=== PATIENT | female | born 1945 | race Caucasian/White ===

== ENCOUNTER 2016-12-01 11:01 | Outpatient (CLI) | payer MEDICARE, OTHER | END 2016-12-01 11:02 | disposition home or self-care (01) | DX: R10.11 Right upper quadrant pain (principal); N28.9 Disorder of kidney and ureter, unspecified ==

== ENCOUNTER 2016-12-06 09:32 | Day surgery (SDC) | payer MEDICARE, OTHER ==
[2016-12-06] MEDS ORDERED: LACTATED RINGERS 1,000 ML IV ONE ×3 (10:15→12:08)
[2016-12-06] MEDS ORDERED: fentaNYL 100 MCG/2 ML VIAL IVP ONE (11:43)
[2016-12-06] MEDS ORDERED: MIDAZOLAM 2 MG/2 ML VIAL IVP ONE (11:43)
== END 2016-12-06 09:33 | disposition home or self-care (01) ==
PROC: 0DB58ZX Excision of Esophagus, Via Natural or Artificial Opening Endoscopic, Diagnostic (ICD-10-PCS; principal; 2016-12-06 11:00)
DX: K21.9 Gastro-esophageal reflux disease without esophagitis (principal); K22.70 Barrett's esophagus without dysplasia; R07.9 Chest pain, unspecified; K44.9 Diaphragmatic hernia without obstruction or gangrene; F32.9 Major depressive disorder, single episode, unspecified; F41.9 Anxiety disorder, unspecified
CPT/HCPCS: 43239; J7120

== ENCOUNTER 2016-12-22 12:05 | Outpatient (CLI) | payer MEDICARE, OTHER | END 2016-12-22 12:06 | disposition home or self-care (01) | DX: G31.9 Degenerative disease of nervous system, unspecified (principal); M47.812 Spondylosis without myelopathy or radiculopathy, cervical region; R29.818 Other symptoms and signs involving the nervous system; H53.2 Diplopia; M62.81 Muscle weakness (generalized) ==

== ENCOUNTER 2017-04-02 12:42 | Outpatient (CLI) | payer MEDICARE, OTHER | END 2017-04-02 12:43 | disposition home or self-care (01) | LOC: LAB 12:42 | PROVIDERS: ATTEND Psychiatry & Neurology Neurology | DX: R20.2 Paresthesia of skin (principal) ==

== ENCOUNTER 2017-04-03 07:39 | Outpatient (CLI) | payer MEDICARE, OTHER | END 2017-04-03 07:40 | disposition home or self-care (01) | LOC: LAB.F 07:39 | PROVIDERS: ATTEND Psychiatry & Neurology Neurology | DX: R20.2 Paresthesia of skin (principal) | CPT/HCPCS: 36415; 84207 ==

== ENCOUNTER 2017-05-23 11:07 | Outpatient (CLI) | payer MEDICARE, OTHER ==
--- NOTE | 2017-05-23 15:34 | Ultrasound Report ---
RETROPERITONEAL ULTRASOUND: 05/23/2017 HISTORY: History of kidney stones, for followup. TECHNIQUE: Real-time scanning by the commission auditor with saved static images reviewed. COMPARISON: 06/11/2015 CT scan abdomen and pelvis. Abdomen ultrasound 2014. FINDINGS: Real-time scanning by the commission auditor with saved static images reviewed. Right kidney 10.2 x 4.7 x 5.1 cm. Cortex 1.1 cm. Mild fullness of the right renal pelvis, similar to previous. No definite mass, stones, or findings of obstruction. Left kidney 11.1 x 5.2 x 5.7 cm. Cortex 1.1 cm. In the inferior pole, there is a 1.7 x 1.4 x 1.6 cm lesion with internal echoes and possible vascularity, with enlargement since the prior CT scan of 06/21/2015. While this could represent a complex cyst, a solid mass is not excluded and further evaluation by CT using a renal protocol is suggested. There is a small 4 mm in diameter lesion in the mid pole peripherally, which may represent a tiny cyst with possible wall calcification. Bladder: Left ureteral jet is seen; the right is not. Prevoid bladder volume 478 mL, postvoid 19 mL. IMPRESSION: FURTHER EVALUATION OF THE KIDNEYS BY A DEDICATED RENAL CT IS SUGGESTED FOR A SMALL ROUNDED PROJECTION FROM THE INFERIOR POLE OF THE LEFT KIDNEY WHICH DOES NOT MEET THE CRITERIA FOR A SIMPLE CYST AND APPEARS TO HAVE ENLARGED SINCE 2015. MILD PROMINENCE OF THE RIGHT RENAL COLLECTING SYSTEM IS SIMILAR TO 2015. JOB #: [id number] EXT JOB #: [id number] [facility]
== END 2017-05-23 11:08 | disposition home or self-care (01) ==
LOC: DI 11:07
PROVIDERS: ATTEND Urology
DX: N28.89 Other specified disorders of kidney and ureter (principal)
CPT/HCPCS: 76770

== ENCOUNTER 2017-11-13 15:03 | Outpatient (CLI) | payer MEDICARE, OTHER ==
--- NOTE | 2017-11-13 17:37 | Ultrasound Report ---
RENAL ULTRASOUND: 11/13/2017 COMPARISON: Renal ultrasound 05/23/2017. INDICATION: Followup left renal cyst versus mass. TECHNIQUE: Sonographic evaluation of the kidneys and urinary bladder. FINDINGS: The right kidney has a normal appearance, apart from mild pelviectasis measuring 8 mm. No evidence of renal calculus or mass; 10.4 cm. The left kidney measures 11.0 cm. In the inferior pole, there is a solid- appearing mass. It contains internal color Doppler flow. It measures 1.6 x 1.5 x 1.5 cm. Although measurements are similar to the prior exam, it appears more conspicuous as a solid mass on today's examination. There is no bowel wall thickening. There are bilateral ureteral jets. Prevoid bladder volume 236 mL. Post-void residual 0. IMPRESSION: LEFT RENAL LESION IS FAVORED TO REPRESENT A SOLID MASS. IT MAY BE FURTHER EVALUATED WITH CT OR MRI. TD: 11/13/2017 17:36 OSMANI
== END 2017-11-13 15:04 | disposition home or self-care (01) ==
LOC: DI 15:03
PROVIDERS: ATTEND Urology
DX: N28.9 Disorder of kidney and ureter, unspecified (principal)
CPT/HCPCS: 76770

== ENCOUNTER 2018-05-14 13:00 | Outpatient (CLI) | payer MEDICARE, OTHER ==
--- NOTE | 2018-05-15 11:22 | Mammography Report ---
Reason: SCREENING MAMMO Procedure Date: 05/14/2018 Accession Number: [id number] / [id number] Procedure: VICKY - Screening Mammo Dig Bilat CPT Code: FULL RESULT: EXAM: Screening Mammo Dig Bilat DATE: 05/14/2018 1:46 PM CLINICAL HISTORY: Screening mammogram TECHNIQUE: Bilateral CC and MLO views were obtained. COMPARISON: Mammogram 05/01/2016 FINDINGS: The breast parenchyma is heterogeneously dense which may limit the sensitivity of mammography. There are benign-appearing lymph nodes. No suspicious masses, clustered microcalcifications, or regions of architectural distortion are identified. IMPRESSION: Benign findings RECOMMENDATION: Routine annual screening unless otherwise clinically indicated. BIRADS CATEGORY 2: Benign findings STANDARD QUALIFYING STATEMENTS: 1. This examination was reviewed with the aid of Computer-Aided Detection (CAD). 2. A negative or benign imaging report should not delay biopsy if clinically suspicious findings are present. Consider surgical consultation if warrented. More than 5% of cancers are not identified by imaging. 3. Dense breasts may obscure an underlying neoplasm.
== END 2018-05-14 13:01 | disposition home or self-care (01) ==
LOC: DI 13:00
PROVIDERS: ATTEND Physician Assistant
DX: Z12.31 Encounter for screening mammogram for malignant neoplasm of breast (principal)
CPT/HCPCS: 77067

== ENCOUNTER 2018-06-04 20:53 | Outpatient (CLI) | payer MEDICARE, OTHER | END 2018-06-04 20:54 | disposition critical access hospital (66) | LOC: EMS 20:53 | PROVIDERS: ATTEND Surgery | DX: R68.89 Other general symptoms and signs (principal); R51 Headache; R73.09 Other abnormal glucose | CPT/HCPCS: A0425; A0429 ==

== ENCOUNTER 2018-06-04 21:19 | Emergency (ER) | payer MEDICARE, OTHER ==
[2018-06-04 21:49] LABS: BASOPHILS % (AUTO) 0.5 %; EOSINOPHILS # (AUTO) 0.1 10^3/uL (0.0-0.7); EOSINOPHILS % (AUTO) 1.9 %; HGB - HEMOGLOBIN 11.1 g/dL (12.0-16.0); LYMPHOCYTES # (AUTO) 1.6 10^3/uL (1.5-3.5); LYMPHOCYTES % (AUTO) 37.1 %; MEAN CORPUSCULAR HGB CONC 33.5 g/dL (32.0-36.0); MEAN CORPUSCULAR VOLUME 83.4 fL (81.0-99.0); MEAN PLATELET VOLUME 7.5 fL (7.9-10.8); MONOCYTES # (AUTO) 0.4 10^3/uL (0.0-1.0); MONOCYTES % (AUTO) 9.7 %; NEUTROPHILS # (AUTO) 2.2 10^3/uL (1.5-6.6); NEUTROPHILS % (AUTO) 50.8 %; PLT - PLATELET COUNT 176 10^3/uL (130-450); RED BLOOD COUNT 3.96 10^6/uL (4.20-5.40); RED CELL DISTRIBUTION WIDTH 16.1 % (12.0-15.0); WHITE BLOOD COUNT 4.3 x10^3/uL (4.8-10.8)
[2018-06-04 22:03] LABS: ALBUMIN/GLOBULIN RATIO 1.3 (1.0-2.2); BILIRUBIN,TOTAL 0.5 mg/dL (0.2-1.0); CALCIUM 8.8 mg/dL (8.5-10.3); CREATININE 0.9 mg/dL (0.4-1.0); TOTAL PROTEIN 7.1 g/dL (6.7-8.2)
[2018-06-04 22:09] LABS: BILIRUBIN,URINE NEGATIVE (NEGATIVE); GLUCOSE, URINE (UA) NEGATIVE (NEGATIVE); KETONES,URINE (UA) NEGATIVE (NEGATIVE); LEUKOCYTE ESTERASE, URINE TRACE (NEGATIVE); NITRITE,URINE NEGATIVE (NEGATIVE); OCCULT BLOOD,URINE NEGATIVE (NEGATIVE); PH,URINE 6.5 PH (5.0-7.5); PROTEIN,URINE NEGATIVE (NEGATIVE); UROBILINOGEN,URINE 0.2 (NORMAL) E.U./dL (NORMAL)
[2018-06-04 22:12] LABS: CLARITY,URINE CLEAR (CLEAR)
[2018-06-04 22:17] LABS: BACTERIA,URINE None Seen /HPF (None Seen); RBC,URINE None Seen /HPF (0-5); SQUAMOUS EPITHELIAL CELL,UR NONE SEEN (<= Few)
[2018-06-04 22:27] VITALS: BP 151/64
--- NOTE | 2018-06-04 22:43 | ED Physician Documentation ---
History of Present Illness - Stated complaint Stated Complaint: NOT FEELING WELL - Chief complaint Chief Complaint: General - History obtained from History obtained from: Patient, EMS - History of Present Illness Timing: Today - Additonal information Additional information: Patient is a 72 year old female with a history of fibromyalgia and insomnia who is presenting to the emergency department for not feeling well. According to patient and ems this evening patient took her gabapentin and shortly after she took her sleep medication. patient felt a bit dizzy and out of it. patient had to sit down with the help of her family. Patient continued to not feel well and had some slurred speech so the family called ems. When ems arrived patient was found to have a blood glucose of 60. patient was given dextrose. Upon arrival in the emergency department patient was starting to feel a bit better and had no focal deficits. Review of Systems Ten Systems: 10 systems reviewed and negative Constitutional: denies: Fever, Chills Eyes: denies: Decreased vision Cardiac: denies: Chest pain / pressure, Palpitations Respiratory: denies: Dyspnea, Cough : denies: Dysuria, Frequency, Hesitancy Neurologic: reports: Generalized weakness, Difficulty speaking. denies: Focal weakness, Numbness PD PAST MEDICAL HISTORY - Past Medical History Cardiovascular: None Respiratory: None, Shortness of breath Endocrine/Autoimmune: None GI: GERD MERIT SYSTEM DIRECTOR: None : Other HEENT: None Psych: Depression, Anxiety Musculoskeletal: None Derm: None - Past Surgical History Past Surgical History: Yes General: Cholecystectomy, Other Ortho: Other /MERIT SYSTEM DIRECTOR: Dilation and currettage HEENT: Tonsil/Adenoidectomy - Present Medications Home Medications: Ambulatory Orders Medication Instructions Recorded Confirmed Citalopram [CeleXA] 20 mg PO DAILY 09/02/13 02/26/18 Trazodone HCl 50 mg PO DAILY 09/04/13 02/26/18 Omeprazole [PriLOSEC] 20 mg PO DAILY 01/30/14 02/26/18 Cholecalciferol (Vitamin D3) 1,000 unit PO DAILY 01/18/16 02/26/18 [Vitamin D3] Calcium Carbonate/Vitamin D3 1 each PO DAILY 08/08/16 02/26/18 [Calcium 500 + Vit D Caplet] Ferrous Gluconate 1 tab PO DAILY 08/14/17 02/26/18 Gabapentin 300 mg PO BID 08/14/17 02/26/18 - Allergies Allergies/Adverse Reactions: Allergies Allergy/AdvReac Type Severity Reaction Status Date / Time adhesive Allergy Unknown Unknown Verified 12/04/16 15:48 gluten Allergy Cramps Verified 06/04/18 21:26 - Social History Does the pt smoke?: No Smoking Status: Never smoker Does the pt drink ETOH?: No Does the pt have substance abuse?: No - Immunizations Immunizations are current?: No - POLST Patient has POLST: No PD ED PE NORMAL - Vitals Vital signs reviewed: Yes - General General: Alert and oriented X 3, No acute distress - HEENT HEENT: Atraumatic - Cardiac Cardiac: RRR - Respiratory Respiratory: No respiratory distress - Abdomen Abdomen: Soft, Non tender - Derm Derm: Normal color, Warm and dry - Extremities Extremities: No deformity - Neuro Neuro: Alert and oriented X 3, financial management consultant 2-12 intact, No motor deficit, Normal speech Eye Opening: Spontaneous Motor: Obeys Commands Verbal: Oriented GCS Score: 15 PD ED PE EXPANDED - HEENT HEENT: Dry mucous membranes - Neuro Neuro: Alert and Oriented X 3, Normal motor, Normal Sensation, Normal Speech, CNII-XII intact, PERRL, Cerebellar nl, Normal gait Results - Vitals Vitals: Vital Signs - 24 hr 06/04/18 06/04/18 21:21 22:21 Temperature 36.7 C Heart Rate 64 71 Respiratory 16 16 Rate Blood Pressure 156/71 H 151/64 H O2 Saturation 100 98 Oxygen O2 Source [With Activity] Room air O2 Source Room air - Labs Labs: Laboratory Tests 06/04/18 06/04/18 06/04/18 21:42 21:42 21:42 WBC 4.3 L RBC 3.96 L Hgb 11.1 L Hct 33.1 L MCV 83.4 MCH 28.0 MCHC 33.5 RDW 16.1 H Plt Count 176 MPV 7.5 L Neut # (Auto) 2.2 Lymph # (Auto) 1.6 [place] # (Auto) 0.4 Eos # (Auto) 0.1 Baso # (Auto) 0.0 Absolute Nucleated RBC 0.00 Nucleated RBC % 0.1 Sodium 140 Potassium 3.9 Chloride 108 Carbon Dioxide 26 Anion Gap 6.0 BUN 22 H Creatinine 0.9 Estimated GFR (MDRD) 61 L Glucose 113 H Calcium 8.8 Total Bilirubin 0.5 AST 16 ALT 15 Alkaline Phosphatase 55 Troponin I < 0.04 Total Protein 7.1 Albumin 4.0 Globulin 3.1 Albumin/Globulin Ratio 1.3 Lipase 27 Urine Color Urine Clarity Urine pH Ur Specific [place] Urine Protein Urine Glucose (UA) Urine Ketones Urine Occult Blood Urine Nitrite Urine Bilirubin Urine Urobilinogen Ur Leukocyte Esterase Urine RBC Urine WBC Ur Squamous Epith Cells Urine Bacteria Ur Microscopic Review Urine Culture Comments 06/04/18 22:00 WBC RBC Hgb Hct MCV MCH MCHC RDW Plt Count MPV Neut # (Auto) Lymph # (Auto) [place] # (Auto) Eos # (Auto) Baso # (Auto) Absolute Nucleated RBC Nucleated RBC % Sodium Potassium Chloride Carbon Dioxide Anion Gap BUN Creatinine Estimated GFR (MDRD) Glucose Calcium Total Bilirubin AST ALT Alkaline Phosphatase Troponin I Total Protein Albumin Globulin Albumin/Globulin Ratio Lipase Urine Color YELLOW Urine Clarity CLEAR Urine pH 6.5 Ur Specific [place] 1.010 Urine Protein NEGATIVE Urine Glucose (UA) NEGATIVE Urine Ketones NEGATIVE Urine Occult Blood NEGATIVE Urine Nitrite NEGATIVE Urine Bilirubin NEGATIVE Urine Urobilinogen 0.2 (NORMAL) Ur Leukocyte Esterase TRACE H Urine RBC None Seen Urine WBC 0-3 Ur Squamous Epith Cells NONE SEEN Urine Bacteria None Seen Ur Microscopic Review INDICATED Urine Culture Comments INDICATED PD MEDICAL DECISION MAKING - ED course Complexity details: reviewed old records, reviewed results, re-evaluated patient, considered differential, d/w patient, d/w family ED course: Patient was seen and examined at bedside. patient was well appearing with no focal deficits. Labs were drawn and urine was collected. patient's diagnostics were relatively unremarkable. Patient's symptoms were likely secondary to taking two sedatives in close time proximity. At discharge patient was awake, alert and oriented with no complaints. patient was stable for discharge with outpatient follow up. - Sepsis Event Vital Signs: Vital Signs - 24 hr 06/04/18 06/04/18 21:21 22:21 Temperature 36.7 C Heart Rate 64 71 Respiratory 16 16 Rate Blood Pressure 156/71 H 151/64 H O2 Saturation 100 98 Oxygen O2 Source [With Activity] Room air O2 Source Room air Departure - Departure Disposition: 01 Home, Self Care Clinical Impression: Weakness generalized Condition: Good Instructions: ED Drug React Adverse Other Follow-Up: Winter Sprague PA [Primary Care Provider] - As Needed Comments: Your diagnostics today were within normal limits. there were no significant abnormalities on your blood or urine. Your symptoms were likely secondary to low blood sugar as well as the multiple medications. You should follow up with your doctor if your symptoms become more frequent. You may return to the emergency department at any time for new, worsening or uncontrollable symptoms. Discharge Date/Time: 06/04/18 23:12
== END 2018-06-04 23:12 | disposition home or self-care (01) ==
LOC: EDUNIT# → ED 21:19
DX: R53.1 Weakness (principal)
CPT/HCPCS: 36415; 80053; 81001; 81003; 83690; 84484; 85025; 87086; 99283

== ENCOUNTER 2018-06-12 08:50 | Outpatient (CLI) | payer MEDICARE, OTHER ==
--- NOTE | 2018-06-12 16:09 | CT Report ---
Reason: RENAL MASS,LEFT Procedure Date: 06/12/2018 Accession Number: [id number] / [id number] Procedure: CT - Abdomen/Pelvis W/O CPT Code: FULL RESULT: EXAM: CT ABDOMEN AND PELVIS EXAM DATE: 06/12/2018 09:04 AM. CLINICAL HISTORY: Renal mass, left. COMPARISONS: ABDOMEN/PELVIS W/ 06/21/2015 5:17 PM RETROPERITONEAL 05/23/2017 11:13 AM. TECHNIQUE: Routine helical CT imaging was performed through the abdomen and pelvis. IV contrast: None. Enteric contrast: No. Reconstructions: Coronal and sagittal. In accordance with CT protocol optimization, one or more of the following dose reduction techniques were utilized for this exam: automated exposure control, adjustment of mA and/or KV based on patient size, or use of iterative reconstructive technique. FINDINGS: Lung Bases: Unremarkable. Liver: Remnant liver is normal. Gallbladder/Bile Ducts: Gallbladder surgically absent. Spleen: Normal. Pancreas: The visualized remnant portion normal. Adrenal Glands: Normal. Kidneys: Along the inferior pole of the left kidney is an exophytic soft tissue density mass which measures at least 1.6 x 1.7 cm and visually features suggestions of minimal macroscopic fat which does not meet Hounsfield criteria for confident diagnosis of angiomyolipoma. There are no associated calcifications, and the differential diagnosis based on previous portal venous phase on today's noncontrast exam remains renal cell carcinoma or lipid poor angiomyolipoma. Please note that today's size measurement is likely an underestimation in the absence of contrast given previous appearance, the mass previously measured 1.4 x 1.2 cm and has definitely enlarged. Peritoneal Cavity/Bowel: What is felt to represent an appendiceal stump is identified without evidence of inflammation. No free fluid, free air or adenopathy. No masses or acute inflammatory process. The patient is status post Whipple. Pelvic Organs: Normal. The bladder and visualized pelvic organs are within normal limits. Vasculature: No aneurysms or other significant abnormality. Bones: No significant abnormality. Other: None. IMPRESSION: Interval enlargement of solid left renal mass now measuring at least 1.7 cm. Recommend MRI renal mass protocol as the subjective appearance suggests that lipid poor angiomyolipoma remains in the differential diagnosis versus renal cell carcinoma. Specifically, the fat sensitive sequences of MRI could make the diagnosis here. An angiomyolipoma of this size would not be indicated for intervention at this time and thus would allow the patient to continue with imaging surveillance and spare intervention. RADIA
== END 2018-06-12 08:51 | disposition home or self-care (01) ==
LOC: DI 08:50
PROVIDERS: ATTEND Urology
DX: N28.89 Other specified disorders of kidney and ureter (principal)
CPT/HCPCS: 74176

== ENCOUNTER 2018-07-21 08:11 | Observation (INO) | payer MEDICARE, OTHER ==
--- NOTE | 2018-07-21 08:29 | ED Physician Documentation ---
PD HPI FOCAL NEURO - Stated complaint Stated Complaint: CONFUSE - History obtained from History obtained from: Patient, Family (sister) - History of Present Illness Timing - onset: Today (This is a 72-year-old woman with history of renal mass, mild hypoglycemia, and iron deficiency anemia as well as fibromyalgia. She says that normally she has great mental status and without any memory difficulties and the sister corroborates this. Today she is having a lot of trouble concentrating and trouble with memory. She is walking slowly and unsteadily. She does not have any specific strokelike symptoms, no lateralization. She does have a moderate headache. She has no history of anything like this. No recent medication changes or increase in her gabapentin.) Review of Systems Unable to obtain: Confused PD PAST MEDICAL HISTORY - Past Medical History Cardiovascular: None Respiratory: None, Shortness of breath Endocrine/Autoimmune: None GI: GERD SENIOR SOFTWARE QUALITY ANALYST: None : Other HEENT: None Psych: Depression, Anxiety Musculoskeletal: None Derm: None - Past Surgical History Past Surgical History: Yes General: Cholecystectomy, Other Ortho: Other /SENIOR SOFTWARE QUALITY ANALYST: Dilation and currettage HEENT: Tonsil/Adenoidectomy - Present Medications Home Medications: Ambulatory Orders Medication Instructions Recorded Confirmed Citalopram [CeleXA] 20 mg PO DAILY 09/02/13 02/26/18 Trazodone HCl 50 mg PO DAILY 09/04/13 02/26/18 Omeprazole [PriLOSEC] 20 mg PO DAILY 01/30/14 07/21/18 Cholecalciferol (Vitamin D3) 1,000 unit PO DAILY 01/18/16 02/26/18 [Vitamin D3] Calcium Carbonate/Vitamin D3 1 each PO DAILY 08/08/16 02/26/18 [Calcium 500 + Vit D Caplet] Ferrous Gluconate 1 tab PO DAILY 08/14/17 02/26/18 Gabapentin 300 mg PO BID PRN 08/14/17 07/21/18 Gabapentin 100 mg PO DAILY 07/21/18 07/21/18 Milnacipran HCl [Savella] 50 mg ORAL DAILY 07/21/18 07/21/18 - Allergies Allergies/Adverse Reactions: Allergies Allergy/AdvReac Type Severity Reaction Status Date / Time adhesive Allergy Unknown Unknown Verified 07/21/18 08:36 gluten Allergy Cramps Verified 07/21/18 08:36 - Social History Does the pt smoke?: No Smoking Status: Never smoker Does the pt drink ETOH?: No Does the pt have substance abuse?: No - Immunizations Immunizations are current?: No - POLST Patient has POLST: No PD ED PE NORMAL - Vitals Vital signs reviewed: Yes - General General: Other (She is alert and oriented to person, she knows she is in the hospital. She can state that the month is July but cannot come up with the year. She is unable to state her address.) - HEENT HEENT: PERRL, EOMI - Neck Neck: Supple, no meningeal sign, No bony TTP - Cardiac Cardiac: RRR, No murmur - Respiratory Respiratory: No respiratory distress, Clear bilaterally - Abdomen Abdomen: Soft, Non tender - Derm Derm: Normal color, Warm and dry - Extremities Extremities: No deformity, No edema, No calf tenderness / cord - Neuro Neuro: barker operator 2-12 intact. No: Alert and oriented X 3 Eye Opening: Spontaneous Motor: Obeys Commands Verbal: Confused GCS Score: 14 - Psych Psych: Normal mood, Normal affect NIHSS - Time Time: 08:20 - Level of Consciousness Level of consciousness: (0) Alert, Keenly responsive LOC Questions: (1) Answers one Q correctly LOC Commands: (0) Performs both correctly - Gaze Best Gaze: (0) Normal - Visual Visual: (0) No loss - Facial Palsy Facial Palsy: (0) Normal, symmetrical movement - Motor Arms (both separate) Motor Arm (right): (0) No drift Motor Arm (left): (0) No drift - Motor Legs (both separate) Motor Leg (right): (0) No drift Motor Leg (left): (0) No drift - Limb Ataxia Limb Ataxia: (0) Absent - Sensory Sensory: (0) Normal - Best Language Best Language: (0) No aphasia - Dysarthria Dysarthria: (0) Normal - Extinction and Inattention (formally neg Extinction and inattention: (0) No abnormality - Total Score/Results Total Score/Result: 1 Results - Vitals Vitals: Vital Signs - 24 hr 07/21/18 07/21/18 08:32 09:19 Temperature 36.9 C Heart Rate 91 98 Respiratory 16 13 Rate Blood Pressure 152/70 H 144/70 H O2 Saturation 100 100 Oxygen O2 Source [] Room air O2 Source Room air - EKG (time done) 0836 Rate: Rate (enter#) (89) Rhythm: NSR [place]: Normal Intervals: Normal MI, Prolonged QT (mild 496msec) QRS: Normal Ischemia: Normal ST segments Computer interpretation: Agree with computer - Labs Labs: Laboratory Tests 07/21/18 07/21/18 07/21/18 08:23 08:27 08:31 WBC 8.4 RBC 4.45 Hgb 12.6 Hct 36.2 L MCV 81.5 MCH 28.4 MCHC 34.8 RDW 15.7 H Plt Count 241 MPV 7.7 L Neut # (Auto) 7.0 H Lymph # (Auto) 0.9 L [place] # (Auto) 0.5 Eos # (Auto) 0.0 Baso # (Auto) 0.0 Absolute Nucleated RBC 0.00 Nucleated RBC % 0.0 PT INR Sodium Potassium Chloride Carbon Dioxide Anion Gap BUN Creatinine Estimated GFR (MDRD) Glucose POC Whole Bld Glucose 143 H Calcium Phosphorus Magnesium Total Bilirubin AST ALT Alkaline Phosphatase Troponin I Total Protein Albumin Globulin Albumin/Globulin Ratio Lipase Urine Color YELLOW Urine Clarity CLEAR Urine pH 6.5 Ur Specific [place] 1.025 Urine Protein NEGATIVE Urine Glucose (UA) NEGATIVE Urine Ketones 15 H Urine Occult Blood TRACE-INTA Urine Nitrite NEGATIVE Urine Bilirubin NEGATIVE Urine Urobilinogen 0.2 (NORMAL) Ur Leukocyte Esterase NEGATIVE Ur Microscopic Review NOT INDICATED Urine Culture Comments NOT INDICATED Urine Opiates Screen NEGATIVE Ur Oxycodone Screen NEGATIVE Urine Methadone Screen NEGATIVE Ur Propoxyphene Screen NEGATIVE Ur Barbiturates Screen NEGATIVE Ur Tricyclics Screen NEGATIVE Ur Phencyclidine Scrn NEGATIVE Ur Amphetamine Screen NEGATIVE U Methamphetamines Scrn NEGATIVE U Benzodiazepines Scrn POSITIVE H Urine Cocaine Screen NEGATIVE U Cannabinoids Screen NEGATIVE Ethyl Alcohol 07/21/18 07/21/18 07/21/18 08:31 08:31 08:31 WBC RBC Hgb Hct MCV MCH MCHC RDW Plt Count MPV Neut # (Auto) Lymph # (Auto) [place] # (Auto) Eos # (Auto) Baso # (Auto) Absolute Nucleated RBC Nucleated RBC % PT 14.0 H INR 1.3 H Sodium 134 L Potassium 2.9 L Chloride 104 Carbon Dioxide 20 L Anion Gap 10.0 BUN 17 Creatinine 0.8 Estimated GFR (MDRD) 70 L Glucose 136 H POC Whole Bld Glucose Calcium 9.3 Phosphorus 2.0 L Magnesium 2.3 Total Bilirubin 1.4 H AST 28 ALT 22 Alkaline Phosphatase 68 Troponin I < 0.04 Total Protein 8.3 H Albumin 4.5 Globulin 3.8 Albumin/Globulin Ratio 1.2 Lipase 21 L Urine Color Urine Clarity Urine pH Ur Specific [place] Urine Protein Urine Glucose (UA) Urine Ketones Urine Occult Blood Urine Nitrite Urine Bilirubin Urine Urobilinogen Ur Leukocyte Esterase Ur Microscopic Review Urine Culture Comments Urine Opiates Screen Ur Oxycodone Screen Urine Methadone Screen Ur Propoxyphene Screen Ur Barbiturates Screen Ur Tricyclics Screen Ur Phencyclidine Scrn Ur Amphetamine Screen U Methamphetamines Scrn U Benzodiazepines Scrn Urine Cocaine Screen U Cannabinoids Screen Ethyl Alcohol < 5.0 - Rads (name of study) Ct Head Radiology: EMP read contemporaneously (atrophy) PD MEDICAL DECISION MAKING - ED course ED course: 72-year-old woman with acute altered mental status most consistent with transient global amnesia. Therefore TPA is not really considered initially. Workup demonstrates modestly low potassium which is repleted orally. Head CT without acute changes. She did come up positive for benzodiazepines on a drug screen which I do not have a clear explanation for. She is not taking any that she knows of. Her only new medication is the Savella which she is been on for a few weeks. That does not look like it should cause any mental status changes. Spoke with Dr. Faust for observation at 9:30 AM Departure - Departure Disposition: ED Place in Observation Clinical Impression: Stroke-like symptoms, Transient global amnesia
[2018-07-21 08:40] LABS: BASOPHILS % (AUTO) 0.5 %; EOSINOPHILS % (AUTO) 0.1 %; HGB - HEMOGLOBIN 12.6 g/dL (12.0-16.0); LYMPHOCYTES # (AUTO) 0.9 10^3/uL (1.5-3.5); LYMPHOCYTES % (AUTO) 10.5 %; MEAN CORPUSCULAR HEMOGLOBIN 28.4 pg (27.0-31.0); MEAN CORPUSCULAR HGB CONC 34.8 g/dL (32.0-36.0); MEAN CORPUSCULAR VOLUME 81.5 fL (81.0-99.0); MEAN PLATELET VOLUME 7.7 fL (7.9-10.8); MONOCYTES # (AUTO) 0.5 10^3/uL (0.0-1.0); MONOCYTES % (AUTO) 5.5 %; NEUTROPHILS % (AUTO) 83.4 %; PLT - PLATELET COUNT 241 10^3/uL (130-450); RED BLOOD COUNT 4.45 10^6/uL (4.20-5.40); RED CELL DISTRIBUTION WIDTH 15.7 % (12.0-15.0); WHITE BLOOD COUNT 8.4 x10^3/uL (4.8-10.8)
[2018-07-21 08:42] LABS: INR 1.3 (0.8-1.2)
[2018-07-21 08:43] LABS: MUDS CUTOFF CONCENTRATIONS CUTOFF CONC BELOW:
[2018-07-21 08:45] LABS: BILIRUBIN,URINE NEGATIVE (NEGATIVE); GLUCOSE, URINE (UA) NEGATIVE (NEGATIVE); KETONES,URINE (UA) 15 mg/dL (NEGATIVE); LEUKOCYTE ESTERASE, URINE NEGATIVE (NEGATIVE); NITRITE,URINE NEGATIVE (NEGATIVE); OCCULT BLOOD,URINE TRACE-INTA (NEGATIVE); PH,URINE 6.5 PH (5.0-7.5); PROTEIN,URINE NEGATIVE (NEGATIVE); UROBILINOGEN,URINE 0.2 (NORMAL) E.U./dL (NORMAL)
[2018-07-21 08:47] LABS: CLARITY,URINE CLEAR (CLEAR)
[2018-07-21 08:50] LABS: ALBUMIN 4.5 g/dL (3.2-5.5); ALBUMIN/GLOBULIN RATIO 1.2 (1.0-2.2); ALKALINE PHOSPHATASE 68 IU/L (42-121); ALT ALANINE AMINOTRANSFERASE 22 IU/L (10-60); AST ASPARTATE AMINOTRANSFERASE 28 IU/L (10-42); BILIRUBIN,TOTAL 1.4 mg/dL (0.2-1.0); BUN - BLOOD UREA NITROGEN 17 mg/dL (6-20); CALCIUM 9.3 mg/dL (8.5-10.3); CARBON DIOXIDE - CO2 20 mmol/L (21-32); CHLORIDE 104 mmol/L (101-111); CREATININE 0.8 mg/dL (0.4-1.0); GFR - MDRD 70 (>89); GLUCOSE 136 mg/dL (70-100); LIPASE 21 U/L (22-51); MAGNESIUM 2.3 mg/dL (1.7-2.8); SODIUM 134 mmol/L (135-145); TOTAL PROTEIN 8.3 g/dL (6.7-8.2)
[2018-07-21 08:57] LABS: AMPHETAMINE SCREEN,URINE NEGATIVE (NEGATIVE); BENZODIAZEPINES SCREEN, URINE POSITIVE (NEGATIVE); COCAINE SCREEN URINE NEGATIVE (NEGATIVE); METHADONE SCREEN, URINE NEGATIVE (NEGATIVE); METHAMPHETAMINES SCREEN, URINE NEGATIVE (NEGATIVE); OPIATE SCREEN, URINE NEGATIVE (NEGATIVE); OXYCODONE SCREEN, URINE NEGATIVE (NEGATIVE); PROPOXYPHENE SCREEN, URINE NEGATIVE (NEGATIVE); TRICYCLIC ANTIDEPRESSANT,URINE NEGATIVE (NEGATIVE)
[2018-07-21] MEDS ORDERED: POTASSIUM BICARB 25 MEQ TABLET PO STA (09:01)
--- NOTE | 2018-07-21 09:09 | CT Report ---
Reason: altered Procedure Date: 07/21/2018 Accession Number: [id number] / [id number] Procedure: CT - Head W/O CPT Code: FULL RESULT: EXAM: CT HEAD EXAM DATE: 07/21/2018 08:44 AM. CLINICAL HISTORY: Altered mental status. COMPARISON: HEAD W/O 12/22/2016 1:17 PM. TECHNIQUE: Multiaxial CT images were obtained from the foramen magnum to the vertex. Reformats: Sagittal and coronal. IV contrast: None. In accordance with CT protocol optimization, one or more of the following dose reduction techniques were utilized for this exam: automated exposure control, adjustment of mA and/or KV based on patient size, or use of iterative reconstructive technique. FINDINGS: Parenchyma: No intraparenchymal hemorrhage. No evidence of mass, midline shift, or CT findings of acute infarction. Bernabe-white differentiation is distinct. Diffuse chronic microangiopathic white matter changes are evident. Extraaxial Spaces: Normal for age. No subdural or epidural collections identified. Ventricles: The ventricles and cortical sulci are enlarged, consistent with age-related tissue loss. Sinuses and orbits: Near complete opacification of the left maxillary sinus. Mild right maxillary and ethmoid sinus disease. No air-fluid level to suggest acute sinusitis. The mastoid air cells are clear. Bones: No evidence of fracture or calvarial defect. Other: None. IMPRESSION: Generalized age-related cortical atrophic changes without evidence of acute intracranial abnormality. No significant change from prior. RADIA
--- NOTE | 2018-07-21 09:22 | XRAY Report ---
Reason: cough Procedure Date: 07/21/2018 Accession Number: [id number] / [id number] Procedure: XR - Chest 2 View X-Ray CPT Code: 06530 FULL RESULT: EXAM: CHEST RADIOGRAPHY EXAM DATE: 07/21/2018 08:53 AM. CLINICAL HISTORY: Cough. COMPARISON: CHEST 2 VIEW PA/LAT 10/16/2015 9:18 AM. TECHNIQUE: 2 views. FINDINGS: Lungs/Pleura: No focal consolidation evident. Diffuse bilateral accentuated interstitial markings. Biapical subpleural scarring. No pleural effusion. No pneumothorax. Hyperinflation. Mediastinum: Heart and mediastinal contours are unremarkable. Other: None. IMPRESSION: No radiographically apparent acute abnormality in the chest. No significant change from prior. Probable COPD. RADIA
[2018-07-21] MEDS ORDERED: ACETAMINOPHEN 325 MG TABLET PO PRN (09:38)
[2018-07-21] MEDS ORDERED: SODIUM CHLORIDE FLUSH 0.9% 10 ML SYRINGE IVP PRN (09:38)
[2018-07-21] MEDS ORDERED: PROMETHAZINE 25 MG/1 ML VIAL IM PRN (09:38)
[2018-07-21] MEDS ORDERED: IOPAMIDOL-300 100 ML VIAL ONE (10:02)
[2018-07-21] MEDS ORDERED: IOPAMIDOL-300 100 ML VIAL IVP ONE (10:43)
--- NOTE | 2018-07-21 11:11 | CT Report ---
Reason: possible stroke memory impairment Procedure Date: 07/21/2018 Accession Number: [id number] / [id number] Procedure: CT - Neck Angio CPT Code: FULL RESULT: EXAM: CT ANGIOGRAM NECK EXAM DATE: 07/21/2018 10:31 AM. CLINICAL HISTORY: Memory impairment. The ordering provider indicates a concern for stroke. COMPARISON: No prior neck CTA. TECHNIQUE: Routine axial helical imaging was performed from the skull base through the aortic arch. Reconstructions: Routine multiplanar 3D MIP reconstructions. IV Contrast: Isovue 300, 80 mL. Evaluation of arterial stenosis is based on a NASCET method of measurement. In accordance with CT protocol optimization, one or more of the following dose reduction techniques were utilized for this exam: automated exposure control, adjustment of mA and/or KV based on patient size, or use of iterative reconstructive technique. FINDINGS: Moderate short segment stenosis at the left cervical vertebral artery origin where there is focal atherosclerotic calcification. No acute abnormality or focal flow-limiting stenosis of the cervical carotid arteries or right cervical vertebral artery. The top of the aortic arch and the origins of the great vessels are patent. IMPRESSION: Moderate short segment stenosis at the left cervical vertebral artery origin. RADIA
[2018-07-21] MEDS: ASPIRIN 325 MG TABLET PO SCH (11:14)
[2018-07-21] MEDS: NS W/20 MEQ KCL 1,000 ML IV SCH ×2 (11:14→20:07)
--- NOTE | 2018-07-21 11:16 | CT Report ---
Reason: Memory impairment concern for stroke Procedure Date: 07/21/2018 Accession Number: [id number] / [id number] Procedure: CT - Head Angio CPT Code: FULL RESULT: EXAM: CT ANGIOGRAM HEAD. CT SCAN OF THE HEAD WITH CONTRAST. EXAM DATE: 07/21/2018 10:31 AM CLINICAL HISTORY: Memory impairment, stated clinical concern for stroke. COMPARISON: No prior CTA of the head. TECHNIQUE: - CT Scan Head: Using a multidetector scanner, axial images were acquired from the foramen magnum to the skull vertex following contrast administration. - CT Angiogram: Using a multidetector scanner, high-resolution axial images were acquired from the skull base through vertex following rapid infusion of intravenous contrast. Reformats: Multiplanar MIP reformats were reconstructed. Nascet criteria used for stenosis measurement. IV Contrast: Isovue 300, [address] mL. In accordance with CT protocol optimization, one or more of the following dose reduction techniques were utilized for this exam: automated exposure control, adjustment of mA and/or KV based on patient size, or use of iterative reconstructive technique. FINDINGS: Brain CT with IV Contrast: Abnormal soft tissue opacities in the maxillary sinuses, left greater than right. These findings of sinus disease suggest mucosal thickening with retention cyst and/or polyp. Chronic benign-appearing nodular calcification along the inner surface of the anterior right lateral skull. No associated enhancing soft tissue lesion. No evidence for major dural venous sinus thrombus. Head CT Angiogram: No proximal intracranial large vessel occlusion, vertebrobasilar insufficiency or aneurysm of the [place]. Patent distal internal carotid arteries. Well-developed left posterior communicating artery. IMPRESSION: No evidence for intracranial large vessel occlusion, focal filling defect, flow-limiting stenosis or intracranial aneurysm. These findings, however, do not preclude the possibility of a small or acute ischemic infarct. RADIA
--- NOTE | 2018-07-21 15:12 | HISTORY & PHYSICAL EXAMINATION ---
Chief Complaint - Chief Complaint Chief Complaint: Difficulty remembering things History of Present Illness - Admitted From Admitted From:: Emergency Department - History Obtained From Records Reviewed: Yes History obtained from: Patient and medical records Exam Limitations: Patient has difficult remembering and expressing herself - History of Present Illness HPI Comment/Other: Patient is a 72-year-old female with a past medical history significant for fibromyalgia, iron deficiency anemia, GERD, depression, history of a renal mass and anxiety who presented to the emergency department with a chief complaint of difficulty remembering things. The patient states that she was in her normal state of health yesterday when she went to a [employer] service for someone who had at her pentecostalism. She states that after attending the service she went shopping with her sister and felt nauseated and lightheaded. She states that the symptoms were transient and resolved. She states that she remembers going to bed last night feeling normal. She states that when she woke up this morning she realized that she was not able to remember what she needed to remember. She states that everything in her brain just seemed to be blended together. She states that her sister noticed the same thing as the patient was not able to express herself and explained to her sister what was going on. Therefore the patient's sister brought her to the emergency department. The patient denies any focal weakness or any facial droop or any headaches. The patient denies any head trauma. Patient denies any fevers or chills. She d enies any abdominal pain, nausea or vomiting. She denies any diarrhea or constipation. She denies any chest pain, shortness of breath or coughing. She denies any urinary urgency, urinary frequency or dysuria. She also denies any neck stiffness, back pain or other focal neurologic deficits. Patient denies any runny nose, sore throat, nasal congestion, difficulty swallowing, changes in her appetite, recent unintentional weight loss, joint pain, muscle aches, joint swelling, skin changes, hair loss, polyuria, polydipsia, night sweats or syncope. On presentation to the emergency department the patient was afebrile and slightly tachycardic and hypertensive with blood pressure of 152/70 she was saturating well on room air. In the emergency department the patient continued to have difficulty with her memory. She could not remember things like where her son works, where she lived before she moved to [facility] or the month and the year. According to her sister these are things that she normally remembers and this is definitely not her norm. The patient was not found to have any other focal neurologic deficits on her neurologic examination. The patient underwent routine lab work which revealed a mild hypokalemia with a potassium of 2.9, a mild hyperglycemia with a blood glucose of 136, a mild hypophosphatemia with a phosphorus of 2.0. The patient's urinalysis was positiv e for ketones but otherwise negative for infection. The patient's urine toxicology screen was positive for benzodiazepines which was likely due to the milnacipran which she takes for her fibromyalgia. The patient underwent a CT of her head which revealed generalized age-related cortical atrophic changes without evidence of acute intracranial abnormality. The patient also underwent a chest x-ray which revealed no acute abnormality in the chest. The patient's CT angiogram of her head and neck showed no evidence for intracranial large vessel occlusion, focal filling defect, flow limiting stenosis or intracranial aneurysm. The CT angiogram of the neck did reveal moderate short segment steno sis at the left cervical vertebral artery origin. This was unlikely to explain her symptoms. The patient did not have complete resolution of her symptoms in the emergency department therefore she was placed in observation for further workup including MRI, echocardiogram and neuro checks. 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 mass on kidney-pt being followed by doctor. under rib pain that comes and goes. 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 She lives in [place] with her sister and her daughter. She is and has 2 adopted kids she has never been . 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 She has never been a smoker, she does not drink alcohol and she denies any illicit drug use. - POLST Patient has POLST: No POLST Status: Full Code Meds/Allgy - Home Medications Home Medications: Ambulatory Orders Medication Instructions Recorded Confirmed Omeprazole [PriLOSEC] 20 mg PO DAILY 01/30/14 07/21/18 Cholecalciferol (Vitamin D3) 1,000 unit PO DAILY 01/18/16 07/21/18 [Vitamin D3] Ferrous Gluconate 324 mg PO DAILY 08/14/17 07/21/18 Gabapentin 300 mg PO BID 08/14/17 07/21/18 Calcium Carbonate [Modg-Log-139] 500 mg PO DAILY 07/21/18 07/21/18 Milnacipran HCl [Savella] 50 mg ORAL BID 07/21/18 07/21/18 Vitamin E (Dl,Tocopheryl Acet) 400 unit PO DAILY 07/21/18 07/21/18 [Vitamin E] - Allergies Allergies/Adverse Reactions: Allergies Allergy/AdvReac Type Severity Reaction Status Date / Time adhesive Allergy Unknown Unknown Verified 07/21/18 11:16 gluten Allergy Cramps Verified 07/21/18 08:36 lactose AdvReac Cramps Verified 07/21/18 11:16 Review of Systems - Other Findings Other Findings: A comprehensive review of systems was performed the pertinent positives and negatives are stated above in the HPI and the remainder of the review of systems is negative. Prior Level of Functionality: Patient is fully independent and able to perform all her activities of daily living independently. Exam - Vital Signs Reviewed Vital Signs: Yes Vital Signs: Vital Signs x48h Temp Pulse Pulse Resp BP BP Pulse Ox 07/21/18 13:35 36.9 C 97 18 139/60 H 100 07/21/18 11:06 36.4 C L 94 18 145/64 H 100 07/21/18 09:19 98 13 144/70 H 100 07/21/18 08:32 36.9 C 91 16 152/70 H 100 - Physical Exam General Appearance: positive: Alert, Other (Patient is having significant difficulties with her memory. She appears to have some expressive aphasia as it seems as though she knows what she wants to say but is unable to get it out. She is not able to remember what her son does for living, where she lived before she moved to [facility] and requires cues for simple questions.) Eyes Bilateral: positive: Normal inspection, PERRL, EOMI, No lid inflammation, Conjunctivae nml, No scleral icterus ENT: positive: ENT inspection nml, Pharynx nml, No signs of dehydration. negative: Purulent nasal drainage, Pharyngeal erythema, Oral lesions Neck: positive: Nml inspection, Thyroid nml, No JVD, Trachea midline. negative: Lymphadenopathy (R), Lymphadenopathy (L), Stiff neck, Carotid bruit, Tracheal deviation Respiratory: positive: Chest non-tender, No respiratory distress, Breath sounds nml. negative: Wheezes, Rales, Rhonchi Cardiovascular: positive: Regular rate & rhythm, No murmur, No gallop Peripheral Pulses: positive: 2+ Abdomen: positive: Non-tender, No organomegaly, Nml bowel sounds, No distention. negative: Guarding, Rebound, Hepatomegaly Back: positive: Nml inspection. negative: CVA tenderness (R) Skin: positive: Color nml, No rash, Warm, Dry. negative: Diaphoresis, Pallor, Skin rash Extremities: positive: Non-tender, Full ROM, Nml appearance, No pedal edema Neurologic/Psychiatric: positive: Oriented x3, CN's nml (2-12), Motor nml, Sensation nml, Mood/affect nml, Other (She is oriented x3 but it takes her a l padmini time to remember the month. She also seems to have some expressive aphasia and has significant memory impairment.) Conclusion/Plan - Problem List (1) Hypokalemia Conclusion/Plan: The patient is hypokalemic on presentation with a potassium of 2.9. She states that she was having some nausea yesterday along with dizziness. The hypokalemia may be secondary to nausea. It also could be secondary to renal dysfunction due to her renal mass although this is unlikely. For now we will give the patient potassium replacement and continue to monitor her potassium daily. (2) Stroke-like symptoms Conclusion/Plan: Patient presented with memory impairment which is occurred acutely since this morning. She seems to have some expressive aphasia. She has no other focal neurologic deficits. She has normal strength, sensations and does not display any signs of ataxia. She has no nystagmus. The patient's infectious workup is negative she has no fever, leukocytosis, her urine analysis is negative and chest x-ray is negative. She does not have any neck stiffness or headache to suggest meningitis. The patient is on a sedative medication for her fibromyalgia has been on this for a long time and it is unlikely that it would be causing the symptoms. Especially considering that the symptoms have persisted throughout this morning and into the afternoon. This does not appear to be a typical case of transient global amnesia as in those cases typically patients tend to repeat themselves and have short-term memory loss. In this patient's case it appears that she knows the answers to many of the questions but just cannot recall them when asked and has difficulty expressing herself. The patient's presentation to [facility] appears more like a stroke. The patient could also have a paraneoplastic syndrome which could be causing the symptoms as she does have a renal mass which has yet to be biopsied or further evaluated again this is very unlikely. At this point the patient needs further monitoring and evaluation. The patient's CT head, CT angiogram head and neck do not show any obvious sources for the patient's symptoms. If the patient's symptoms persist and we do not have any obvious causes seen on MRI then we will need to consider consultation from neurology. Plan: Aspirin Lipitor MRI brain Echo Lipid profile Tele [facility] HbA1C (3) Hypertension Conclusion/Plan: The patient is hypertensive on presentation. She does not have a history of hypertension. The patient's hypertension may be secondary to ongoing stroke. For now we will allow for permissive hypertension and we will not start any antihypertensive medications at this time. Qualifiers: Hypertension type: unspecified secondary hypertension Qualified Code(s): I15.9 - Secondary hypertension, unspecified; I15 - Secondary hypertension (4) Hypophosphatemia Conclusion/Plan: The patient has a low phosphorus on presentation with a phosphorus of 2.0. The patient was nauseated yesterday and appeared to be dehydrated on examination. Patient will be given phosphorus replacement and we will continue to monitor her phosphorus. (5) Hyponatremia Conclusion/Plan: The patient does have hyponatremia with a sodium of 134. She does appear to be dry on examination and appears to have hypovolemic hyponatremia. The patient will be given IV fluids and we will continue to monitor her sodium. (6) Hyperglycemia Conclusion/Plan: The patient is slightly hyperglycemic on presentation with a blood glucose of 143. She does not have any history of diabetes. This may be elevated secondary to stress or patient may be prediabetic. At this point we will monitor her blood glucose daily and check a hemoglobin A1c in the morning. (7) Hyperbilirubinemia Conclusion/Plan: The patient does have a mildly elevated bilirubin of 1.4. Previously the patient's bilirubin has been normal. At this point we will get a abdominal ultrasound to assess her liver and biliary system. We will also monitor her bilirubin daily. The remainder of the patient's LFTs are within normal limits and she does not drink alcohol. (8) Renal mass Conclusion/Plan: The patient has a renal mass which was seen on imaging of the abdomen in June 2018 to be enlarging. As there was interval enlargement of solid left renal ma ss which is now measuring at least 1.7 cm. At that time the radiologist recommended MRI renal mass protocol as the subjective appearance suggested that lipid poor angiomyolipoma remains in the differential diagnosis versus renal cell carcinoma. It does not appear that the patient has had an MRI of this renal mass or biopsy. Plan: Patient will need to continue to follow-up with her primary care physician for further workup of this renal mass. (10) GERD (gastroesophageal reflux disease) Conclusion/Plan: The patient has a history of GERD and will be placed on Pepcid twice daily while she is hospitalized. - Lab Results Fish Bones: 07/21/18 08:31 07/21/18 08:31 Core Measures - Anticipated LOS I expect patient to be DC'd or transferred within 96 hours.: Yes - DVT/VTE - Prophylaxis VTE/DVT Device ordered at admit?: Yes
[2018-07-21] MEDS: SODIUM CHLORIDE FLUSH 0.9% 10 ML SYRINGE IVP SCH (16:12)
[2018-07-21] MEDS: NEUTRA-PHOS 250 MG TABLET PO SCH (16:15)
[2018-07-21] MEDS: ONDANSETRON 4 MG/2 ML VIAL IVP PRN (16:18)
[2018-07-21] MEDS: PROCHLORPERAZINE 10 MG/2 ML VIAL IVP PRN (17:46)
[2018-07-21] MEDS: FAMOTIDINE 20 MG TABLET PO SCH (20:05)
[2018-07-21] MEDS ORDERED: ATORVASTATIN 40 MG TABLET PO SCH (21:00)
--- NOTE | 2018-07-21 22:37 | Ultrasound Report ---
Reason: altered mental status and elevated bili Procedure Date: 07/21/2018 Accession Number: [id number] / [id number] Procedure: US - Abdomen Complete CPT Code: FULL RESULT: EXAM: ABDOMEN ULTRASOUND EXAM DATE: 07/21/2018 09:15 PM. CLINICAL HISTORY: Altered mental status and elevated bilirubin. COMPARISON: Abdomen and pelvis CT 06/12/2018. TECHNIQUE: Real-time scanning was performed with static images obtained. FINDINGS: Liver: Normal in size and echotexture. 13.2 cm. Main portal vein flow: Hepatopetal. Gallbladder: Status post cholecystectomy. Biliary System: Common bile duct measures 3 mm. No intrahepatic or extrahepatic ductal dilatation. Pancreas: Visualized portion is unremarkable. Kidneys: Right: 9.7 cm longitudinally. Normal in contour with mild pelviectasis. Left: 10.8 cm longitudinally. Minimal pelviectasis. Exophytic solid lesion at the lower pole measuring 1.6 cm. Spleen: 7.6 cm. Normal in size and echotexture. Aorta and Inferior Vena Cava: Unremarkable. Other: None. IMPRESSION: 1. Status post cholecystectomy with normal diameter common duct. 2. Mild bilateral renal pelviectasis. 3. Solid lesion at the lower pole of the left kidney measuring 1.6 cm suspicious for renal cell carcinoma and similar to the study of one month prior. RADIA
[2018-07-22] MEDS: NS W/20 MEQ KCL 1,000 ML IV SCH (06:43)
[2018-07-22] MEDS: SODIUM CHLORIDE FLUSH 0.9% 10 ML SYRINGE IVP SCH ×2 (06:45→07:19)
[2018-07-22 07:15] LABS: BASOPHILS % (AUTO) 0.3 %; EOSINOPHILS % (AUTO) 0.2 %; HGB - HEMOGLOBIN 11.9 g/dL (12.0-16.0); LYMPHOCYTES # (AUTO) 0.9 10^3/uL (1.5-3.5); LYMPHOCYTES % (AUTO) 14.8 %; MEAN CORPUSCULAR HEMOGLOBIN 28.3 pg (27.0-31.0); MEAN CORPUSCULAR HGB CONC 34.3 g/dL (32.0-36.0); MEAN CORPUSCULAR VOLUME 82.5 fL (81.0-99.0); MEAN PLATELET VOLUME 7.5 fL (7.9-10.8); MONOCYTES # (AUTO) 0.4 10^3/uL (0.0-1.0); MONOCYTES % (AUTO) 6.2 %; NEUTROPHILS % (AUTO) 78.5 %; PLT - PLATELET COUNT 201 10^3/uL (130-450); RED CELL DISTRIBUTION WIDTH 16.1 % (12.0-15.0); WHITE BLOOD COUNT 6.3 x10^3/uL (4.8-10.8)
[2018-07-22 07:25] LABS: ALBUMIN 4.1 g/dL (3.2-5.5); ALBUMIN/GLOBULIN RATIO 1.3 (1.0-2.2); BILIRUBIN,TOTAL 1.2 mg/dL (0.2-1.0); CALCIUM 8.4 mg/dL (8.5-10.3); CREATININE 0.7 mg/dL (0.4-1.0); TOTAL PROTEIN 7.3 g/dL (6.7-8.2)
[2018-07-22 07:30] LABS: CHOL/HDL RATIO 4.6 (<4.4); CHOLESTEROL 133 mg/dL; HDL CHOLESTEROL 29 mg/dL; LDL CHOLESTEROL,CALCULATED 78 mg/dL; LDL/HDL RATIO 2.7 (<4.4); VLDL CHOLESTEROL 26 mg/dL
[2018-07-22] MEDS ORDERED: POTASSIUM CHLORIDE 20 MEQ TABLET PO ONE (07:46)
[2018-07-22] MEDS: ONDANSETRON 4 MG/2 ML VIAL IVP PRN (08:13)
[2018-07-22 08:18] LABS: INR 1.3 (0.8-1.2); PT - PROTHROMBIN TIME 14.6 secs (9.9-12.6)
[2018-07-22 08:31] LABS: HB2 TOTAL 12.7 g/dL; HEMOGLOBIN A1C 0.52 g/dL; HEMOGLOBIN A1C % 5.9 % (4.6-6.2)
[2018-07-22] MEDS ORDERED: POLYETHYLENE GLYCOL 3350 17 GM PACKET PO SCH (09:00)
[2018-07-22] MEDS: PROCHLORPERAZINE 10 MG/2 ML VIAL IVP PRN (09:30)
[2018-07-22] MEDS: NEUTRA-PHOS 250 MG TABLET PO SCH ×2 (09:31→11:59)
[2018-07-22] MEDS: ASPIRIN 325 MG TABLET PO SCH (09:32)
[2018-07-22] MEDS: FAMOTIDINE 20 MG TABLET PO SCH (09:32)
[2018-07-22 11:50] VITALS: BP 134/76
--- NOTE | 2018-07-22 12:11 | MRI Report ---
Reason: memory impairment possible stroke Procedure Date: 07/22/2018 Accession Number: [id number] / [id number] Procedure: MRI - Brain W/O CPT Code: FULL RESULT: EXAM: MRI BRAIN WITHOUT CONTRAST EXAM DATE: 07/22/2018 11:45 AM. CLINICAL HISTORY: Memory impairment, possible stroke. COMPARISON: Brain with and without 03/25/2013 11:17 AM Head angio 07/21/2018 10:24 AM. TECHNIQUE: Multiplanar, multisequence T1-weighted and fluid-sensitive MR sequences of the brain were performed. Sequences optimized for routine evaluation. Other: None. IV Contrast: None. FINDINGS: Mild diffuse atrophy. Cerebral volume loss consistent with atrophy appears to be mildly progressive. No acute or recent ischemic infarct or intracranial hemorrhage. No hydrocephalus, mass effect or midline shift. Moderately prominent chronic-appearing cerebral white matter disease, the overall pattern is similar to prior but findings are now mildly progressive, white matter disease is likely attributable to aging and chronic microangiopathy. No mass effect, midline shift or abnormal subdural fluid collection. Progressive multifocal paranasal sinus disease. Near complete fluid opacification of the left maxillary sinus with probably multiple and larger retention cysts. There is now a medium sized retention cyst in the right lateral maxillary sinus. Bilateral ethmoid and maxillary mucosal thickening is more prominent. Clear mastoids. The major arterial skull base flow voids are present. Previous lens extractions. Stable small nodular focus of fat signal, dural based over the right lateral frontotemporal convexity. This may be a chronic ossified meningioma or osteoma. No interval progression or brain impingement. No focal pathologic appearing marrow signal changes in the skull or clivus. IMPRESSION: No acute intracranial abnormality. Chronic but progressive-appearing senescent changes. Progressive paranasal sinus disease is present. RADIA
--- NOTE | 2018-07-22 13:25 | Discharge Plan ---
Discharge Plan Disposition: 01 Home, Self Care Condition: Fair Prescriptions: Aspirin [Adult Aspirin] 81 mg PO DAILY #90 tablet. Diet: Regular Activity Restrictions: No Restrictions Shower Restrictions: No Driving Restrictions: No Weight Bearing: Full Weight Additional Instructions or Follow Up instructions: You presented to the emergency department with memory impairment. You had acute difficulty with your memory. It appears that these symptoms are improving over the course of your stay here in the hospital. You underwent extensive workup with CTs of your head and neck, MRI, echocardiogram and neurologic evaluation. We did find that you have some chronic changes in your brain on your MRI which may be suggestive of some mild cognitive impairment from early dementia. Given that the symptoms occurred acutely and then are resolving it is possible that you may have had a small mini stroke or TIA. Also you are on a medication for fibromyalgia which can be mildly sedating and could also contribute to issues of sedation or memory impairment. I recommend that you start taking a daily aspirin, stop taking the fibromyalgia medication Savella. I also recommend that you do activities to stimulate your brain to prevent further memory impairment. I would recommend trying to do crossword puzzles, reading and doing other mind puzzles. You should follow-up with your primary care physician and your primary care physician may want to consider a referral to neurology if your symptoms continue. You also have a renal mass which needs further evaluation please see your primary care physician regarding this renal mass. No Smoking: If you smoke, Please STOP! Call for help. Follow-up with: Winter Sprague PA [Primary Care Provider] -
--- NOTE | 2018-07-22 13:37 | DISCHARGE SUMMARY ---
Discharge Summary Admit Date: 07/21/18 Discharge Date: 07/22/18 Discharging Provider: Bharat Faust MD Primary Care Provider: Winter Sprague MD Code Status: Attempt Resuscitation Condition at Discharge: Fair Discharge Disposition: 01 Home, Self Care - DIAGNOSES Admission Diagnoses: 1. Strokelike symptoms 2. Hypokalemia 3. Hypertension 4. Hypophosphatemia 5. Hyponatremia 6. Hyperglycemia 7. Hyper bilirubinemia 8. Renal mass 9. GERD Discharge Diagnoses with Status of Each Condition: 1. Memory impairment: Stable 2. Mild cognitive deficit: Stable 3. Hypokalemia: Improving 4. Hypophosphatemia: Improving 5. Hyponatremia: Resolved 6. Hyperglycemia: Resolved 7. Hyperbilirubinemia: Stable 8. Renal mass: Guarded 9. GERD: Stable - HPI History of Present Illness: Patient is a 72-year-old female with a past medical history significant for fibromyalgia, iron deficiency anemia, GERD, depression, history of a renal mass and anxiety who presented to the emergency department with a chief complaint of difficulty remembering things. The patient states that she was in her normal state of health yesterday when she went to a [employer] service for someone who had at her restorationism. She states that after attending the service she went shopping with her sister and felt nauseated and lightheaded. She states that the symptoms were transient and resolved. She states that she remembers going to bed last night feeling normal. She states that when she woke up this morning she realized that she was not able to remember what she needed to remember. She states that everything in her brain just seemed to be blended together. She states that her sister noticed the same thing as the patient was not able to express herself and explained to her sister what was going on. Therefore the patient's sister brought her to the emergency department. The patient denies any focal weakness or any facial droop or any headaches. The patient denies any head trauma. Patient denies any fevers or chills. She denies any abdominal pain, nausea or vomiting. She denies any diarrhea or constipation. She denies any chest pain, shortness of breath or coughing. She denies any urinary urgency, urinary frequency or dysuria. She also denies any neck stiffness, back pain or other focal neurologic deficits. Patient denies any runny nose, sore throat, nasal congestion, difficulty swallowing, changes in her appetite, recent unintentional weight loss, joint pain, muscle aches, joint swelling, skin changes, hair loss, polyuria, polydipsia, night sweats or syncope. On presentation to the emergency department the patient was afebrile and slightly tachycardic and hypertensive with blood pressure of 152/70 she was saturating well on room air. In the emergency department the patient continued to have difficulty with her memory. She could not remember things like where her son works, where she lived before she moved to [facility] or the month and the year. According to her sister these are things that she normally remembers and this is definitely not her norm. The patient was not found to have any other focal neurologic deficits on her neurologic examination. The patient underwent routine lab work which revealed a mild hypokalemia with a potassium of 2.9, a mild hyperglycemia with a blood glucose of 136, a mild hypophosphatemia with a phosphorus of 2.0. The patient's urinalysis was positive for ketones but otherwise negative for infection. The patient's urine toxicology screen was positive for benzodiazepines which was likely due to the milnacipran which she takes for her fibromyalgia. The patient underwent a CT of her head which revealed generalized age-related cortical atrophic changes without evidence of acute intracranial abnormality. The patient also underwent a chest x-ray which revealed no acute abnormality in the chest. The patient's CT angiogram of her head and neck showed no evidence for intracranial large vessel occlusion, focal filling defect, flow limiting stenosis or intracranial aneurysm. The CT angiogram of the neck did reveal moderate short segment stenosis at the left cervical vertebral artery origin. This was unlikely to explain her symptoms. The patient did not have complete resolution of her symptoms in the emergency department therefore she was placed in observation for further workup including MRI, echocardiogram and neuro checks. - HOSPITAL COURSE Hospital Course: Patient presented to the emergency department with acute onset memory deficit. She was placed in observation and worked up for possible stroke. She underwent CT of the head, CT angiogram of the head and neck, echocardiogram, neurologic examination and overnight monitoring. The patient had no significant focal neurologic deficits aside from the memory impairment. The patient's CT head and CT angiogram did not reveal any obvious causes for the patient's symptoms. Patient's echocardiogram showed no significant abnormalities and patient remained in a normal sinus rhythm. The patient was found to have a number of electrolyte abnormalities including hyponatremia, hypokalemia, hypophosphatemia and hyperglycemia. These electrolyte abnormalities were resolved with treatment during the hospitalization. The patient underwent an MRI which did show chronic but progressive appearing senescent changes. There was also progressive paranasal sinus disease. The patient's memory impairment seemed to improve over the course of her stay in the hospital. It was not completely clear as to what caused her memory impairment. It does seem that the patient likely has some mild cognitive deficit from early dementia. This may be part of her memory impairment as talking to her sister it appears that she has been having issues with her memory over the last year or so. This acute worsening in the symptoms may have been secondary to a TIA that has resolved or could be from dehydration and the electrolyte disturbances that she had when she presented to the emergency department. It is also possible that the memory impairment may have been worsened due to sedative medication such as her Savilla which she takes for fibromyalgia and can have some benzodiazepine type effects. The patient was advised to start a baby aspirin in the case that this was a TIA. She was also advised to stop taking Savilla and keep well-hydrated. She was advised to follow-up with her primary care physician and seek a neurology consult if her symptoms persist. She was advised to continue to stimulate her mind and do puzzles to try to delay any worsening of dementia. The patient will also need to follow-up regarding a renal mass that she has been followed for for many years. It appears that the mass is growing and that she may benefit from a biopsy. The patient will follow up with her primary care physician and was discharged home in stable condition. - ALLERGIES Allergies/Adverse Reactions: Allergies Allergy/AdvReac Type Severity Reaction Status Date / Time adhesive Allergy Unknown Unknown Verified 07/21/18 11:16 gluten Allergy Cramps Verified 07/21/18 08:36 lactose AdvReac Cramps Verified 07/21/18 11:16 - MEDICATIONS Home Medications: Ambulatory Orders Medication Instructions Recorded Confirmed Omeprazole [PriLOSEC] 20 mg PO DAILY 01/30/14 07/21/18 Cholecalciferol (Vitamin D3) 1,000 unit PO DAILY 01/18/16 07/21/18 [Vitamin D3] Ferrous Gluconate 324 mg PO DAILY 08/14/17 07/21/18 Gabapentin 300 mg PO BID 08/14/17 07/21/18 Calcium Carbonate [[id number]] 500 mg PO DAILY 07/21/18 07/21/18 Vitamin E (Dl,Tocopheryl Acet) 400 unit PO DAILY 07/21/18 07/21/18 [Vitamin E] Aspirin [Adult Aspirin] 81 mg PO DAILY #90 tablet. 07/22/18 - PHYSICAL EXAM AT DISCHARGE General Appearance: positive: No acute distress, Alert, Other (Mild deficits in her memory) Eyes Bilateral: positive: Normal inspection, PERRL, EOMI, No lid inflammation, Conjunctivae nml, No scleral icterus ENT: positive: ENT inspection nml, Pharynx nml, No signs of dehydration. negative: Purulent nasal drainage, Pharyngeal erythema, Oral lesions Neck: positive: Nml inspection, Thyroid nml, No JVD, Trachea midline. negative: Thyromegaly, Lymphadenopathy (R), Lymphadenopathy (L), Stiff neck, Carotid bruit, Tracheal deviation Respiratory: positive: Chest non-tender, No respiratory distress, Breath sounds nml. negative: Wheezes, Rales, Rhonchi Cardiovascular: positive: Regular rate & rhythm, No murmur, No gallop Peripheral Pulses: positive: 2+ Abdomen: positive: Non-tender, No organomegaly, Nml bowel sounds, No distention. negative: Guarding, Rebound, Hepatomegaly Back: positive: Nml inspection. negative: CVA tenderness (R), CVA tenderness (L) Skin: positive: Color nml, No rash, Warm, Dry. negative: Cyanosis, Diaphoresis, Pallor, Skin rash Extremities: positive: Non-tender, Full ROM, Nml appearance, No pedal edema Neurologic/Psychiatric: positive: Oriented x3, CN's nml (2-12), Motor nml, Sensation nml, Mood/affect nml, Other (Mild memory deficits. ) - LABS Result Diagrams: 07/22/18 06:57 07/22/18 06:57 Other Lab Results: Laboratory Results WBC 6.3 x10^3/uL (4.8-10.8) 07/22/18 06:57 RBC 4.20 10^6/uL (4.20-5.40) 07/22/18 06:57 Hgb 11.9 g/dL (12.0-16.0) L 07/22/18 06:57 Hct 34.6 % (37.0-47.0) L 07/22/18 06:57 MCV 82.5 fL (81.0-99.0) 07/22/18 06:57 MCH 28.3 pg (27.0-31.0) 07/22/18 06:57 MCHC 34.3 g/dL (32.0-36.0) 07/22/18 06:57 RDW 16.1 % (12.0-15.0) H 07/22/18 06:57 Plt Count 201 10^3/uL (130-450) 07/22/18 06:57 MPV 7.5 fL (7.9-10.8) L 07/22/18 06:57 Neut # (Auto) 5.0 10^3/uL (1.5-6.6) 07/22/18 06:57 Lymph # (Auto) 0.9 10^3/uL (1.5-3.5) L 07/22/18 06:57 Tripp # (Auto) 0.4 10^3/uL (0.0-1.0) 07/22/18 06:57 Eos # (Auto) 0.0 10^3/uL (0.0-0.7) 07/22/18 06:57 Baso # (Auto) 0.0 10^3/uL (0.0-0.1) 07/22/18 06:57 Absolute Nucleated RBC 0.00 x10^3/uL 07/22/18 06:57 Nucleated RBC % 0.0 /100WBC 07/22/18 06:57 PT 14.6 secs (9.9-12.6) H 07/22/18 06:57 INR 1.3 (0.8-1.2) H 07/22/18 06:57 Sodium 138 mmol/L (135-145) 07/22/18 06:57 Potassium 3.2 mmol/L (3.5-5.0) L 07/22/18 06:57 Chloride 108 mmol/L (101-111) 07/22/18 06:57 Carbon Dioxide 23 mmol/L (21-32) 07/22/18 06:57 Anion Gap 7.0 (6-13) 07/22/18 06:57 BUN 11 mg/dL (6-20) 07/22/18 06:57 Creatinine 0.7 mg/dL (0.4-1.0) 07/22/18 06:57 Estimated GFR (MDRD) 82 (>89) L 07/22/18 06:57 Glucose 118 mg/dL (70-100) H 07/22/18 06:57 POC Whole Bld Glucose 143 mg/dL (70 - 100) H 07/21/18 08:27 Glycated Hemoglobin 5.9 % (4.6-6.2) 07/22/18 06:57 Estim Average Glucose 123 (70-100) H 07/22/18 06:57 Calcium 8.4 mg/dL (8.5-10.3) L 07/22/18 06:57 Phosphorus 2.0 mg/dL (2.5-4.6) L 07/21/18 08:31 Magnesium 2.3 mg/dL (1.7-2.8) 07/21/18 08:31 Total Bilirubin 1.2 mg/dL (0.2-1.0) H 07/22/18 06:57 AST 40 IU/L (10-42) 07/22/18 06:57 ALT 37 IU/L (10-60) 07/22/18 06:57 Alkaline Phosphatase 58 IU/L (42-121) 07/22/18 06:57 Troponin I < 0.04 ng/mL (<0.49) 07/21/18 21:41 Total Protein 7.3 g/dL (6.7-8.2) 07/22/18 06:57 Albumin 4.1 g/dL (3.2-5.5) 07/22/18 06:57 Globulin 3.2 g/dL (2.1-4.2) 07/22/18 06:57 Albumin/Globulin Ratio 1.3 (1.0-2.2) 07/22/18 06:57 Triglycerides 129 mg/dL (-149) 07/22/18 06:57 Cholesterol 133 mg/dL (-199) 07/22/18 06:57 LDL Cholesterol, Calc 78 mg/dL (-129) 07/22/18 06:57 VLDL Cholesterol 26 mg/dL 07/22/18 06:57 HDL Cholesterol 29 mg/dL (60-) L 07/22/18 06:57 LDL/HDL Ratio 2.7 (<4.4) 07/22/18 06:57 Cholesterol/HDL Ratio 4.6 (<4.4) 07/22/18 06:57 Lipase 21 U/L (22-51) L 07/21/18 08:31 Urine Color YELLOW 07/21/18 08:23 Urine Clarity CLEAR (CLEAR) 07/21/18 08:23 Urine pH 6.5 PH (5.0-7.5) 07/21/18 08:23 Ur Specific [place] 1.025 (1.002-1.030) 07/21/18 08:23 Urine Protein NEGATIVE mg/dL (NEGATIVE) 07/21/18 08:23 Urine Glucose (UA) NEGATIVE mg/dL (NEGATIVE) 07/21/18 08:23 Urine Ketones 15 mg/dL (NEGATIVE) H 07/21/18 08:23 Urine Occult Blood TRACE-INTA (NEGATIVE) 07/21/18 08:23 Urine Nitrite NEGATIVE (NEGATIVE) 07/21/18 08:23 Urine Bilirubin NEGATIVE (NEGATIVE) 07/21/18 08:23 Urine Urobilinogen 0.2 (NORMAL) E.U./dL (NORMAL) 07/21/18 08:23 Ur Leukocyte Esterase NEGATIVE (NEGATIVE) 07/21/18 08:23 Ur Microscopic Review NOT INDICATED 07/21/18 08:23 Urine Culture Comments NOT INDICATED 07/21/18 08:23 Urine Opiates Screen NEGATIVE (NEGATIVE) 07/21/18 08:23 Ur Oxycodone Screen NEGATIVE (NEGATIVE) 07/21/18 08:23 Urine Methadone Screen NEGATIVE (NEGATIVE) 07/21/18 08:23 Ur Propoxyphene Screen NEGATIVE (NEGATIVE) 07/21/18 08:23 Ur Barbiturates Screen NEGATIVE (NEGATIVE) 07/21/18 08:23 Ur Tricyclics Screen NEGATIVE (NEGATIVE) 07/21/18 08:23 Ur Phencyclidine Scrn NEGATIVE (NEGATIVE) 07/21/18 08:23 Ur Amphetamine Screen NEGATIVE (NEGATIVE) 07/21/18 08:23 U Methamphetamines Scrn NEGATIVE (NEGATIVE) 07/21/18 08:23 U Benzodiazepines Scrn POSITIVE (NEGATIVE) H 07/21/18 08:23 Urine Cocaine Screen NEGATIVE (NEGATIVE) 07/21/18 08:23 U Cannabinoids Screen NEGATIVE (NEGATIVE) 07/21/18 08:23 Ethyl Alcohol < 5.0 mg/dL 07/21/18 08:31 - DIAGNOSTIC IMAGING Diagnostic Imaging Results: Final report reviewed Diagnostic Imaging Results Comments: Chest x-ray Impression: No radiographically apparent acute abnormality in the chest. No significant change from prior. Probable COPD. CT head Impression: Generalized age-related cortical atrophic changes without evidence of acute intracranial abnormality. No significant change from prior. CT angiogram head and neck Impression: No evidence for intracranial large vessel occlusion, focal filling defect, flow-limiting stenosis or intracranial aneurysm. These findings however do not preclude the possibility of small or acute ischemic infarct. Impression: Moderate short segment stenosis of the left cervical vertebral artery origin. Abdominal ultrasound Impression: 1. Status post cholecystectomy with normal diameter common duct. 2. Mild bilateral renal pelviectasis. 3. Solid lesion at the lower pole of the left kidney measuring 1.6 cm suspicious for renal cell carcinoma and similar to study of 1 month prior. MRI brain Impression: No acute intracranial abnormality. Chronic but progressive appearing senescent changes. Progressive paranasal sinus disease is present. Echocardiogram Impression: Overall left ventricular systolic function is normal with an ejection fraction of 60-65%. No regional wall motion abnormalities. Trace tricuspid regurgitation present. Otherwise no significant abnormality seen. - FOLLOW UP Follow Up: The patient presented with acute memory impairment. Patient's symptoms improved but she still has some mild memory impairment. The patient's workup was unremarkable including CT head, CT angios head and neck and MRI. The patient did have findings of progressively worsening senescent changes of the brain. This could be suggestive that the patient's symptoms could be due to progressing dementia. However given the patient's symptoms improved during hospitalization it appears more likely that she had some kind of acute event. This could be a TIA or could be secondary to electrolyte abnormalities that were seen when patient presented. The patient was treated with IV fluids and electrolyte replacement. The patient was discharged home on aspirin in the case that this was a TIA. She was also encouraged to continue to stimulate her brain on a daily basis. She will follow-up with her primary care physician and may need a referral to neurology if the set patient's symptoms continue. The patient was also found to have a renal mass which has been seen on previous CT scan this does require further workup and a biopsy may be of value given that it looks like a renal cell carcinoma. - TIME SPENT Time Spent in Discharge (Minutes): 45
== END 2018-07-22 13:50 | disposition home or self-care (01) ==
LOC: ED 08:11 → OBS 09:38
PROVIDERS: ADMIT Internal Medicine; ATTEND Internal Medicine
DX: R41.3 Other amnesia (principal); R41.81 Age-related cognitive decline; E87.6 Hypokalemia; E83.39 Other disorders of phosphorus metabolism; E87.1 Hypo-osmolality and hyponatremia; R73.9 Hyperglycemia, unspecified; E80.6 Other disorders of bilirubin metabolism; E86.0 Dehydration; E86.1 Hypovolemia; K21.9 Gastro-esophageal reflux disease without esophagitis; I65.02 Occlusion and stenosis of left vertebral artery; I10 Essential (primary) hypertension; R40.2412 Glasgow coma scale score 13-15, at arrival to emergency department; N28.89 Other specified disorders of kidney and ureter; D50.9 Iron deficiency anemia, unspecified; M79.7 Fibromyalgia; F32.9 Major depressive disorder, single episode, unspecified; F41.9 Anxiety disorder, unspecified; Z79.899 Other long term (current) drug therapy; Z90.49 Acquired absence of other specified parts of digestive tract
CPT/HCPCS: 36415; 70450; 70496; 70498; 70551; 71046; 76700; 80053; 80061; 81003; 83036; 83690; 83735; 84100; 84484; 85025; 85610; 93005; 93306; 96361; 96374; 96375; 96376; 99284; 99285; A9270; G0378; Q9967; 80306; 80320; 81001; 83721; 87086

== ENCOUNTER 2018-11-27 18:08 | Emergency (ER) | payer MEDICARE, OTHER ==
[2018-11-27 18:52] LABS: BILIRUBIN,URINE NEGATIVE (NEGATIVE); GLUCOSE, URINE (UA) NEGATIVE (NEGATIVE); KETONES,URINE (UA) NEGATIVE (NEGATIVE); LEUKOCYTE ESTERASE, URINE NEGATIVE (NEGATIVE); NITRITE,URINE NEGATIVE (NEGATIVE); OCCULT BLOOD,URINE SMALL (NEGATIVE); PH,URINE 5.5 PH (5.0-7.5); PROTEIN,URINE TRACE mg/dL (NEGATIVE); UROBILINOGEN,URINE 0.2 (NORMAL) E.U./dL (NORMAL)
[2018-11-27 18:53] LABS: CLARITY,URINE CLEAR (CLEAR)
[2018-11-27 18:56] LABS: BASOPHILS % (AUTO) 0.2 %; LYMPHOCYTES # (AUTO) 0.3 10^3/uL (1.5-3.5); LYMPHOCYTES % (AUTO) 3.4 %; MEAN CORPUSCULAR HEMOGLOBIN 27.6 pg (27.0-31.0); MEAN CORPUSCULAR HGB CONC 33.6 g/dL (32.0-36.0); MEAN PLATELET VOLUME 8.3 fL (7.9-10.8); MONOCYTES # (AUTO) 0.4 10^3/uL (0.0-1.0); MONOCYTES % (AUTO) 4.7 %; NEUTROPHILS # (AUTO) 7.3 10^3/uL (1.5-6.6); NEUTROPHILS % (AUTO) 91.7 %; PLT - PLATELET COUNT 168 10^3/uL (130-450); RED BLOOD COUNT 4.36 10^6/uL (4.20-5.40); RED CELL DISTRIBUTION WIDTH 16.6 % (12.0-15.0); WHITE BLOOD COUNT 7.9 x10^3/uL (4.8-10.8)
[2018-11-27 18:58] LABS: BACTERIA,URINE None Seen /HPF (None Seen); CASTS, URINE 0-2 Hyaline Casts /LPF; MUCUS,URINE Few Strands; RBC,URINE 0-5 /HPF (0-5); SQUAMOUS EPITHELIAL CELL,UR RARE Squamous (<= Few)
[2018-11-27 19:10] LABS: ALBUMIN 3.9 g/dL (3.2-5.5); ALBUMIN/GLOBULIN RATIO 1.3 (1.0-2.2); BILIRUBIN,TOTAL 1.1 mg/dL (0.2-1.0); CALCIUM 8.9 mg/dL (8.5-10.3)
[2018-11-27] MEDS ORDERED: SODIUM CHLORIDE 0.9% 1,000 ML IV ONE ×2 (19:59)
[2018-11-27] MEDS ORDERED: POTASSIUM BICARB 25 MEQ TABLET PO STA (20:26)
--- NOTE | 2018-11-27 20:27 | ED Physician Documentation ---
PD HPI NVD - Stated complaint Stated Complaint: VOMITING, CONFUSED - Chief complaint Chief Complaint: Abd Pain - History obtained from History obtained from: Patient, Family - History of Present Illness Timing - onset: How many days ago (2) Timing - duration: Days (2) Timing - details: Gradual onset Pain level max: 4 Pain level now: 0 Associated symptoms: Abdominal pain (crampy). No: Fever, Chest pain, Hematemesis, Melena, Hematochezia, Dizzy, Near syncope / syncope, Loss of appetite, Weight loss, Dysuria Contributing factors: Sick contact (sister sick with same). No: Bad food, Travel, Recent antibiotics, Alcohol use, Anticoagulated, Diabetes Improved by: Vomiting Worsened by: Eating Similar symptoms before: Has not had sx before Recently seen: Not recently seen - Additonal information Additional information: was also mildly confused earlier today. now resolved. states that is common when she is sick Review of Systems Constitutional: denies: Fever, Chills Nose: denies: Rhinorrhea / runny nose, Congestion Throat: denies: Sore throat GI: reports: Nausea, Vomiting, Diarrhea Skin: denies: Rash Musculoskeletal: denies: Neck pain, Back pain Neurologic: denies: Headache PD PAST MEDICAL HISTORY - Past Medical History Past Medical History: Yes Cardiovascular: None Respiratory: None Neuro: Headaches Endocrine/Autoimmune: None GI: GERD LOSS PREVENTION OPERATIONS MANAGER: None : Other HEENT: None Psych: Anxiety Musculoskeletal: None Derm: None - Past Surgical History Past Surgical History: Yes General: Cholecystectomy, Other Ortho: Other /LOSS PREVENTION OPERATIONS MANAGER: Dilation and currettage HEENT: Tonsil/Adenoidectomy - Present Medications Home Medications: Ambulatory Orders Medication Instructions Recorded Confirmed Omeprazole [PriLOSEC] 20 mg PO DAILY 01/30/14 09/10/18 Cholecalciferol (Vitamin D3) 1,000 unit PO DAILY 01/18/16 09/10/18 [Vitamin D3] Ferrous Gluconate 324 mg PO DAILY 08/14/17 09/10/18 Gabapentin 300 mg PO BID 08/14/17 09/10/18 Calcium Carbonate [[id number]] 500 mg PO DAILY 07/21/18 09/10/18 Aspirin [Adult Aspirin] 81 mg PO DAILY #90 tablet. 07/22/18 09/10/18 Ondansetron Odt [Zofran] 4 mg TL Q6H PRN #10 tablet 11/27/18 - Allergies Allergies/Adverse Reactions: Allergies Allergy/AdvReac Type Severity Reaction Status Date / Time adhesive Allergy Unknown Unknown Verified 11/27/18 18:41 gluten Allergy Cramps Verified 11/27/18 18:41 lactose AdvReac Cramps Verified 11/27/18 18:41 - Social History Does the pt smoke?: No Smoking Status: Never smoker Does the pt drink ETOH?: No Does the pt have substance abuse?: No - Immunizations Immunizations are current?: No - POLST Patient has POLST: No POLST Status: Full Code PD ED PE NORMAL - Vitals Vital signs reviewed: Yes - General General: Alert and oriented X 3, No acute distress, Well developed/nourished - HEENT HEENT: PERRL, Other (dry lips and tongue) - Neck Neck: Supple, no meningeal sign, No bony TTP - Cardiac Cardiac: RRR, Strong equal pulses - Respiratory Respiratory: No respiratory distress, Clear bilaterally - Abdomen Abdomen: Soft, Non tender, Non distended - Derm Derm: Warm and dry - Extremities Extremities: No edema - Neuro Neuro: Alert and oriented X 3 - Psych Psych: Normal mood, Normal affect Results - Vitals Vitals: Vital Signs - 24 hr 11/27/18 11/27/18 11/27/18 18:15 19:46 21:08 Temperature 36.7 C 36.4 C L Heart Rate 90 80 92 Respiratory 20 16 18 Rate Blood Pressure 148/67 H 138/61 H 152/85 H O2 Saturation 100 98 100 Oxygen O2 Source [With Activity] Room air O2 Source Room air - Labs Labs: Laboratory Tests 11/27/18 11/27/18 11/27/18 18:43 18:50 18:50 WBC 7.9 RBC 4.36 Hgb 12.0 Hct 35.8 L MCV 82.0 MCH 27.6 MCHC 33.6 RDW 16.6 H Plt Count 168 MPV 8.3 Neut # (Auto) 7.3 H Lymph # (Auto) 0.3 L [place] # (Auto) 0.4 Eos # (Auto) 0.0 Baso # (Auto) 0.0 Absolute Nucleated RBC 0.00 Nucleated RBC % 0.0 Sodium 134 L Potassium 3.0 L Chloride 105 Carbon Dioxide 16 L Anion Gap 13.0 BUN 19 Creatinine 1.0 Estimated GFR (MDRD) 54 L Glucose 137 H Calcium 8.9 Total Bilirubin 1.1 H AST 35 ALT 19 Alkaline Phosphatase 46 Total Protein 7.0 Albumin 3.9 Globulin 3.1 Albumin/Globulin Ratio 1.3 Lipase 19 L Urine Color YELLOW Urine Clarity CLEAR Urine pH 5.5 Ur Specific [place] >=1.030 H Urine Protein TRACE Urine Glucose (UA) NEGATIVE Urine Ketones NEGATIVE Urine Occult Blood SMALL H Urine Nitrite NEGATIVE Urine Bilirubin NEGATIVE Urine Urobilinogen 0.2 (NORMAL) Ur Leukocyte Esterase NEGATIVE Urine RBC 0-5 Urine WBC 0-3 Ur Squamous Epith Cells RARE Squamous Urine Bacteria None Seen Urine Casts 0-2 Hyaline Casts Urine Mucus Few Strands Ur Microscopic Review INDICATED Urine Culture Comments NOT INDICATED PD MEDICAL DECISION MAKING - ED course Complexity details: reviewed results, re-evaluated patient, considered differential, d/w patient, d/w family ED course: 73-year-old female presents to the emergency department with vomiting and diarrhea. Mild hypokalemia. Does appear dehydrated. Feels better after IV fluids and potassium replacement. Tolerating p.o. without difficulty. No risk factors for C. difficile diarrhea. Sister was sick with same. No fevers. No abdominal tenderness on palpation. We will continue supportive care and follow- up with her doctor. Patient counseled regarding signs and symptoms for which I believe and urgent re-evaluation would be necessary. Patient with good understanding of and agreement to plan and is comfortable going home at this time This document was made in part using voice recognition software. While efforts are made to proofread this document, sound alike and grammatical errors may occur. Departure - Departure Disposition: 01 Home, Self Care Clinical Impression: Hypokalemia, Weakness generalized, Dehydration, Viral gastroenteritis Condition: Good Instructions: ED Dehydration, ED Gastroenteritis Viral Follow-Up: Winter Sprague PA [Primary Care Provider] - Within 3 Days Prescriptions: Ondansetron Odt [Zofran] 4 mg TL Q6H PRN #10 tablet PRN Reason: Nausea / Vomiting Comments: Drink plenty of fluids and rest. Return if you worsen. Discharge Date/Time: 11/27/18 21:19
[2018-11-27 21:09] VITALS: BP 152/85
== END 2018-11-27 21:19 | disposition home or self-care (01) ==
LOC: ED 18:08
DX: E87.6 Hypokalemia (principal); R53.1 Weakness; E86.0 Dehydration; A08.4 Viral intestinal infection, unspecified; Z79.82 Long term (current) use of aspirin
CPT/HCPCS: 36415; 80053; 81001; 83690; 85025; 96360; 99283; A9270; 81003; 87086

== ENCOUNTER 2018-12-16 13:46 | Outpatient (CLI) | payer MEDICARE, OTHER ==
[2018-12-16] MEDS ORDERED: GADOBUTROL 7.5 MMOL/7.5 ML VIAL ONE (14:06)
[2018-12-16] MEDS ORDERED: GADOBUTROL 7.5 MMOL/7.5 ML VIAL IVP ONE (15:07)
--- NOTE | 2018-12-17 13:55 | MRI Report ---
Reason: LEFT RENAL MASS Procedure Date: 12/16/2018 Accession Number: [id number] / [id number] Procedure: MRI - Abdomen W/WO CPT Code: FULL RESULT: EXAM: MR ABDOMEN WITH AND WITHOUT CONTRAST (MR KIDNEYS) EXAM DATE: 12/16/2018 03:08 PM. CLINICAL HISTORY: Left renal mass. COMPARISON: PANCREAS/ABDOMEN W/WO 12/04/2013 9:37 AM ABDOMEN COMPLETE 07/21/2018 9:15 PM MRI ABDOMEN/PANCREAS 09/16/2012 9:01 AM ABDOMEN/PELVIS W/O 06/12/2018 9:02 AM. TECHNIQUE: Multiplanar breath-hold T1, T2, and DWI sequences obtained through the kidneys and abdomen on an MR scanner. Images obtained before and after administration of 7 mL Gadavist intravenous contrast. Multiphase sequences obtained through the kidneys. FINDINGS: Lung Bases: Small hiatal hernia. Liver: The liver has normal size, morphology and signal. No evidence of mass. Gallbladder: Surgically absent. Bile ducts: No intrahepatic or extrahepatic duct dilatation. Pancreas: The pancreas appears normal with no mass or ductal dilatation. Spleen: The spleen appears normal. Kidneys: Right Kidney: 0.8 cm right upper renal cyst. No suspicious right renal mass or hydronephrosis. Visualized right ureter is unremarkable. Left Kidney: Exophytic anterolateral left lower renal enhancing mass measures 1.9 x 1.4 cm on series 501 image 111, previously 1.7 x [address] 06/12/2018, series 3 image 35 by my measurement. This lesion was not present on MRI 09/16/2012. No significant fat demonstrated on present MRI. A small central cystic component is present. A tiny 0.4 cm posterior lateral left upper renal cyst. Adrenals: The adrenal glands appear normal. Bowel: The visualized segments of the small bowel and colon appear normal with no inflammation or obstruction. Retroperitoneum: The retroperitoneal structures appear normal with no mass or lymphadenopathy. Other: None. IMPRESSION: 1. Exophytic left lower renal enhancing mass is again noted. Mass measures up to 1.9 cm today, previously 1.[address] 06/12/2018. Lesion was not visible on MRI 09/16/2012. Lesion remains concerning for small renal cell carcinoma. [facility]
== END 2018-12-16 13:47 | disposition home or self-care (01) ==
LOC: DI 13:46
PROVIDERS: ATTEND Urology
DX: N28.89 Other specified disorders of kidney and ureter (principal)
CPT/HCPCS: 74183; A9585

== ENCOUNTER 2019-01-23 10:40 | Outpatient (CLI) | payer MEDICARE, OTHER ==
[2019-01-23] MEDS ORDERED: IOVERSOL 320 100 ML VIAL IVP ONE ×2 (11:00→11:26)
--- NOTE | 2019-01-23 12:39 | CT Report ---
Reason: RENAL MASS Procedure Date: 01/23/2019 Accession Number: [id number] / [id number] Procedure: CT - ABDOMEN W/WO CPT Code: FULL RESULT: EXAM: CT ABDOMEN WITHOUT AND WITH CONTRAST EXAM DATE: 01/23/2019 11:13 AM. HISTORY: Renal mass. COMPARISON: ABDOMEN/PELVIS W/O 06/12/2018 9:02 AM. TECHNIQUE: Routine helical CT imaging was performed through the abdomen before and after administration of IV contrast: 100 mL Optiray 320. Enteric contrast: No. Reconstruction: Coronal and sagittal. In accordance with CT protocol optimization, one or more of the following dose reduction techniques were utilized for this exam: automated exposure control, adjustment of mA and/or KV based on patient size, or use of iterative reconstructive technique. FINDINGS: Lung Bases: Minimal dependent changes. Small sliding hiatal hernia. Liver: Normal. No masses. Gallbladder/Bile Ducts: Status post cholecystectomy. Spleen: Normal. Pancreas: Normal. No masses or ductal obstruction. Adrenal Glands: Normal. Kidneys: The heterogeneously enhancing solid exophytic left inferior pole renal mass now measures up to 1.8 cm on image 36 series 5, previously maximal dimension 1.6 cm. Right kidney is unremarkable. Peritoneal Cavity/Bowel: There is no bowel obstruction or free fluid or free air. No adenopathy is detected. Vasculature: No aneurysms or other significant abnormality. Bones: No significant abnormality. Other: None. IMPRESSION: Mild interval enlargement of the left lower pole suspected renal cell carcinoma, now up to 1.8 cm. SHELLEY The call report notification system was initiated by Dr. Matt Gomez at 12:31 PM on 01/23/2019. ADDENDUM: 01/23/19 13:24 The above call report findings were discussed with the medical chemist to Oxana Thakkar by Dr. Matt Gomez at 01:24 PM on 01/23/2019.
== END 2019-01-23 10:41 | disposition home or self-care (01) ==
LOC: DI 10:40
PROVIDERS: ATTEND Urology
DX: N28.89 Other specified disorders of kidney and ureter (principal)
CPT/HCPCS: 74170; Q9967

== ENCOUNTER 2019-02-14 08:37 | Emergency (ER) | payer MEDICARE, OTHER ==
[2019-02-14 08:53] VITALS: BP 131/60
[2019-02-14] MEDS ORDERED: cephALEXin 250 MG CAPSULE PO STA (10:17)
--- NOTE | 2019-02-14 10:20 | ED Physician Documentation ---
PD HPI UPPER EXT INJURY - Stated complaint Stated Complaint: LT HAND LAC - Chief complaint Chief Complaint: Wound - History obtained from History obtained from: Patient, Family (sister) - History of Present Illness Location: Left, Hand Type of injury: Laceration Where injury occurred: Other (Retail outlet) Timing - onset: How many days ago (4) Timing - details: Still present Associated symptoms: Swelling Similar symptoms before: Has not had sx before - Additonal information Additional information: The patient is a pleasant 73-year-old female who cut the dorsum of her left hand 4 days ago on a shopping cart while at [facility]. She did not seek medical attention at that time. She did go to a pharmacy to get a tetanus booster yesterday. She presents to the emergency department today because of increased redness, swelling, and pain at the injury site. She is right-hand dominant. 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 : Other HEENT: None Psych: Anxiety Musculoskeletal: None Derm: None - Past Surgical History Past Surgical History: Yes General: Cholecystectomy, Other Ortho: Other /STUDY MANAGER: Dilation and currettage HEENT: Tonsil/Adenoidectomy - Present Medications Home Medications: Ambulatory Orders Medication Instructions Recorded Confirmed Omeprazole [PriLOSEC] 20 mg PO DAILY 01/30/14 09/10/18 Cholecalciferol (Vitamin D3) 1,000 unit PO DAILY 01/18/16 09/10/18 [Vitamin D3] Ferrous Gluconate 324 mg PO DAILY 08/14/17 09/10/18 Gabapentin 300 mg PO BID 08/14/17 09/10/18 Calcium Carbonate [[id number]] 500 mg PO DAILY 07/21/18 09/10/18 Aspirin [Adult Aspirin] 81 mg PO DAILY #90 tablet. 07/22/18 09/10/18 Ondansetron Odt [Zofran] 4 mg TL Q6H PRN #10 tablet 11/27/18 cephALEXin [Cephalexin] 500 mg PO TID #20 tablet 02/14/19 - Allergies Allergies/Adverse Reactions: Allergies Allergy/AdvReac Type Severity Reaction Status Date / Time adhesive Allergy Unknown Unknown Verified 02/14/19 08:53 gluten Allergy Cramps Verified 02/14/19 08:53 lactose AdvReac Cramps Verified 02/14/19 08:53 - Social History Does the pt smoke?: No Smoking Status: Never smoker Does the pt drink ETOH?: No Does the pt have substance abuse?: No - Immunizations Immunizations are current?: No - POLST Patient has POLST: No POLST Status: Full Code PD ED PE NORMAL - Vitals Vital signs reviewed: Yes (normal) - General General: Alert and oriented X 3, Well developed/nourished - HEENT HEENT: Atraumatic - Respiratory Respiratory: No respiratory distress - Derm Derm: No rash - Extremities Extremities: Other (There are 2 lacerations on the dorsum of the left hand, each is about 2 cm in length, and fairly superficial. There is soft tissue swelling, and mild erythema encompassing the dorsum of the hand, with associated tenderness to palpation. She is able to flex and extend the DIP, PIP, and MCP joints, but flexion exacerbates her discomfort. There is no lymphangitic streaking. Distal neurovascular is intact.) - Neuro Neuro: Alert and oriented X 3, No motor deficit, No sensory deficit Results - Vitals Vitals: Vital Signs - 24 hr 02/14/19 08:50 Temperature 36.1 C L Heart Rate 89 Respiratory 16 Rate Blood Pressure 131/60 H O2 Saturation 99 Oxygen O2 Source [With Activity] Room air O2 Source Room air PD MEDICAL DECISION MAKING - ED course Complexity details: considered differential, d/w patient, d/w family ED course: The patient's presentation is significant for lacerations to the dorsum of the left hand, with evidence of cellulitis. Her presentation does not suggest tenosynovitis or foreign body. Treatment in the emergency department included administration of cephalexin 500 mg orally and application of a wound dressing. Suturing of the wound is not clinically indicated at this time, 4 days after the injury occurred. I discussed with the patient and her sister the expected course of injury, antibiotic treatment and outpatient follow-up, as well as potentially worrisome signs or symptoms that should prompt reevaluation in the emergency department. Departure - Departure Disposition: 01 Home, Self Care Clinical Impression: Cellulitis of left hand Condition: Stable Instructions: ED Infec Skin Cellulitis Follow-Up: Winter Sprague PA [Primary Care Provider] - Prescriptions: cephALEXin [Cephalexin] 500 mg PO TID #20 tablet Comments: Take cephalexin 3 times daily as prescribed. Keep your left hand elevated as much of the time as possible. You can use Tylenol or ibuprofen as needed for discomfort. Follow-up with your primary physician within 2 weeks if not completely resolved. Return to the emergency department if you develop increasing redness, swelling, pain, or otherwise worsening symptoms.
== END 2019-02-14 10:33 | disposition home or self-care (01) ==
LOC: ED 08:37
DX: S61.412A Laceration without foreign body of left hand, initial encounter (principal); L03.114 Cellulitis of left upper limb; W45.8XXA Other foreign body or object entering through skin, initial encounter; Y93.89 Activity, other specified; Y92.512 Supermarket, store or market as the place of occurrence of the external cause
CPT/HCPCS: 99283; A9270

== ENCOUNTER 2019-12-10 17:06 | Emergency (ER) | payer MEDICARE ==
--- NOTE | 2019-12-10 17:32 | ED Physician Documentation ---
History of Present Illness - Stated complaint Stated Complaint: WEAKNESS - Chief complaint Chief Complaint: Neuro - History obtained from History obtained from: Patient (74 yo F w/ pmh of fibromyalgia, transient global amnesia, anxiety, depression, presents w/ weakness. She states she had an episode this AM where she went to use the restroom and her legs just gave out on her. She held onto the counter and then sat on the ground. No LOC. She had no prodromal headache, dizziness, chest pain, dyspnea. She did not lose consciousness. She was able to get up after a few minutes. This occurred again a few hours later in similar fashion, though she didn't feel quite as week. She reports multiple episodes of non-bloody diarrhea last night, and a few today though lessening in frequency. NO fever or chills, chest pain, dyspnea, abd pain, n/v, or dysuria. Tolerating po. Pt has no hx/o DM, HTN, cva, seizure activity.) Review of Systems Constitutional: reports: Reviewed and negative Eyes: reports: Reviewed and negative Ears: reports: Reviewed and negative Nose: reports: Reviewed and negative Throat: reports: Reviewed and negative Cardiac: reports: Reviewed and negative Respiratory: reports: Reviewed and negative GI: reports: Diarrhea. 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 : Other HEENT: None Psych: Anxiety Musculoskeletal: None Derm: None - Past Surgical History Past Surgical History: Yes General: Cholecystectomy, Other Ortho: Other /SENIOR NET C DEVELOPER: Dilation and currettage HEENT: Tonsil/Adenoidectomy - Present Medications Home Medications: Ambulatory Orders Medication Instructions Recorded Confirmed Omeprazole [PriLOSEC] 20 mg PO DAILY 01/30/14 09/09/19 Cholecalciferol (Vitamin D3) 1,000 unit PO DAILY 01/18/16 09/09/19 [Vitamin D3] Ferrous Gluconate 324 mg PO DAILY 08/14/17 09/09/19 Gabapentin 300 mg PO BID 08/14/17 09/09/19 Calcium Carbonate [[id number]] 500 mg PO DAILY 07/21/18 09/09/19 Aspirin [Adult Aspirin] 81 mg PO DAILY #90 tablet. 07/22/18 09/09/19 Ondansetron Odt [Zofran] 4 mg TL Q6H PRN #10 tablet 11/27/18 09/09/19 cephALEXin [Cephalexin] 500 mg PO TID #20 tablet 02/14/19 09/09/19 - Allergies Allergies/Adverse Reactions: Allergies Allergy/AdvReac Type Severity Reaction Status Date / Time adhesive Allergy Unknown Unknown Verified 09/09/19 10:55 gluten Allergy Cramps Verified 09/09/19 10:55 lactose AdvReac Cramps Verified 09/09/19 10:55 - Social History Does the pt smoke?: No Smoking Status: Never smoker Does the pt drink ETOH?: No Does the pt have substance abuse?: No - Immunizations Immunizations are current?: No - POLST Patient has POLST: No POLST Status: Full Code PD ED PE NORMAL - Vitals Vital signs reviewed: Yes - General General: Alert and oriented X 3, No acute distress - HEENT HEENT: Atraumatic, Moist mucous membranes, Pharynx benign - Neck Neck: Supple, no meningeal sign, No JVD - Cardiac Cardiac: RRR, No murmur, No gallop, No rub - Respiratory Respiratory: No respiratory distress, Clear bilaterally - Abdomen Abdomen: Normal bowel sounds, Soft, Non tender, Non distended - Back Back: No CVA TTP, No spinal TTP - Derm Derm: Normal color, Warm and dry, No rash - Extremities Extremities: No deformity, No tenderness to palpate, Normal ROM s pain, No edema, No calf tenderness / cord - Neuro Neuro: Alert and oriented X 3, head of conservation 2-12 intact, No motor deficit, No sensory deficit, Normal speech, Other (occasionally forgets words) Eye Opening: Spontaneous Motor: Obeys Commands Verbal: Oriented GCS Score: 15 Results - Vitals Vitals: Vital Signs - 24 hr 12/10/19 12/10/19 12/10/19 17:09 17:30 18:08 Temperature 37.2 C Heart Rate 80 85 93 Respiratory 16 21 16 Rate Blood Pressure 140/51 H 151/64 H 141/58 H O2 Saturation 99 100 100 Oxygen O2 Source [With Activity] Room air O2 Source Room air - Labs Labs: Laboratory Tests 12/10/19 12/10/19 12/10/19 17:25 17:25 17:25 WBC 9.3 RBC 4.27 Hgb 11.8 L Hct 35.7 L MCV 83.6 MCH 27.6 MCHC 33.1 RDW 15.6 H Plt Count 158 MPV 9.8 Neut # (Auto) 8.3 H Lymph # (Auto) 0.5 L [place] # (Auto) 0.5 Eos # (Auto) 0.0 Baso # (Auto) 0.0 Absolute Nucleated RBC 0.00 Nucleated RBC % 0.0 Sodium 133 L Potassium 3.2 L Chloride 102 Carbon Dioxide 19 L Anion Gap 12.0 BUN 17 Creatinine 1.1 H Estimated GFR (MDRD) 48 L Glucose 119 H Calcium 9.0 Total Bilirubin 1.0 AST 23 ALT 19 Alkaline Phosphatase 58 Troponin I High Sens 6.9 Total Protein 8.0 Albumin 4.4 Globulin 3.6 Albumin/Globulin Ratio 1.2 Lipase 16 L Urine Color Urine Clarity Urine pH Ur Specific [place] Urine Protein Urine Glucose (UA) Urine Ketones Urine Occult Blood Urine Nitrite Urine Bilirubin Urine Urobilinogen Ur Leukocyte Esterase Urine RBC Urine WBC Ur Squamous Epith Cells Urine Bacteria Urine Casts Ur Microscopic Review Urine Culture Comments 12/10/19 18:00 WBC RBC Hgb Hct MCV MCH MCHC RDW Plt Count MPV Neut # (Auto) Lymph # (Auto) [place] # (Auto) Eos # (Auto) Baso # (Auto) Absolute Nucleated RBC Nucleated RBC % Sodium Potassium Chloride Carbon Dioxide Anion Gap BUN Creatinine Estimated GFR (MDRD) Glucose Calcium Total Bilirubin AST ALT Alkaline Phosphatase Troponin I High Sens Total Protein Albumin Globulin Albumin/Globulin Ratio Lipase Urine Color YELLOW Urine Clarity CLEAR Urine pH 6.0 Ur Specific [place] 1.010 Urine Protein NEGATIVE Urine Glucose (UA) NEGATIVE Urine Ketones NEGATIVE Urine Occult Blood SMALL H Urine Nitrite NEGATIVE Urine Bilirubin NEGATIVE Urine Urobilinogen 0.2 (NORMAL) Ur Leukocyte Esterase TRACE H Urine RBC 0-5 Urine WBC 4-5 Ur Squamous Epith Cells NONE SEEN Urine Bacteria None Seen Urine Casts 0-2 Hyaline Casts Ur Microscopic Review INDICATED Urine Culture Comments INDICATED PD MEDICAL DECISION MAKING - ED course Complexity details: reviewed old records, reviewed results, re-evaluated patient, considered differential, d/w patient ED course: 74 yo F presented with lower leg weakness x 2 today. She also reports multiple episodes of watery diarrhea last night and a few episodes today, though none in the last few hours. Her labs indicated mild dehydration and mild rah. She felt much better after IVF. Potassium given po and pt tolerated w/o difficulty. Her neuro exam was unremarkable. Her EKG showed NSR w/o s/t changes and slightly prolonged QTc. I suspect she had lower ext weakness 2/2 to diarrhea and fluid loss. Her symptoms have resolved and she would like to go home. I have advised her to stay well hydrated and may take a bland diet and advance as tolerated. If she has recurrent symptoms, return to the ER. Departure - Departure Disposition: 01 Home, Self Care Clinical Impression: Viral gastroenteritis, Dehydration, Weakness generalized Condition: Good Instructions: ED Dehydration, ED Gastroenteritis Non Infec Comments: You presented with 1 day of diarrhea and 2 episodes of weakness today. Your lab work and physical exam were reassuring and I suspect you had weakness due to mild dehydration. Your symptoms improved with intravenous fluids and potassium replacement. I'd like you to continue sipping on oral fluids and take a bland diet including toast, bananas, applesauce, or other easily digestible foods. If you have recurrent or worsening symptoms, return to the ER.
[2019-12-10 17:38] LABS: BASOPHILS % (AUTO) 0.2 %; EOSINOPHILS % (AUTO) 0.2 %; HGB - HEMOGLOBIN 11.8 g/dL (12.0-16.0); LYMPHOCYTES # (AUTO) 0.5 10^3/uL (1.5-3.5); LYMPHOCYTES % (AUTO) 4.8 %; MEAN CORPUSCULAR HEMOGLOBIN 27.6 pg (27.0-31.0); MEAN CORPUSCULAR HGB CONC 33.1 g/dL (32.0-36.0); MEAN CORPUSCULAR VOLUME 83.6 fL (81.0-99.0); MEAN PLATELET VOLUME 9.8 fL (7.9-10.8); MONOCYTES # (AUTO) 0.5 10^3/uL (0.0-1.0); MONOCYTES % (AUTO) 5.8 %; NEUTROPHILS # (AUTO) 8.3 10^3/uL (1.5-6.6); NEUTROPHILS % (AUTO) 88.5 %; PLT - PLATELET COUNT 158 10^3/uL (130-450); RED BLOOD COUNT 4.27 10^6/uL (4.20-5.40); RED CELL DISTRIBUTION WIDTH 15.6 % (12.0-15.0); WHITE BLOOD COUNT 9.3 x10^3/uL (4.8-10.8)
[2019-12-10 17:48] LABS: ALBUMIN 4.4 g/dL (3.2-5.5); ALBUMIN/GLOBULIN RATIO 1.2 (1.0-2.2); CREATININE 1.1 mg/dL (0.4-1.0)
[2019-12-10] MEDS ORDERED: SODIUM CHLORIDE 0.9% 500 ML IV ONE (17:58)
[2019-12-10] MEDS ORDERED: POTASSIUM CHLORIDE 20 MEQ TABLET PO STA (18:01)
[2019-12-10 18:19] LABS: BILIRUBIN,URINE NEGATIVE (NEGATIVE); GLUCOSE, URINE (UA) NEGATIVE (NEGATIVE); KETONES,URINE (UA) NEGATIVE (NEGATIVE); LEUKOCYTE ESTERASE, URINE TRACE (NEGATIVE); NITRITE,URINE NEGATIVE (NEGATIVE); OCCULT BLOOD,URINE SMALL (NEGATIVE); PROTEIN,URINE NEGATIVE (NEGATIVE); UROBILINOGEN,URINE 0.2 (NORMAL) E.U./dL (NORMAL)
[2019-12-10 18:24] LABS: CLARITY,URINE CLEAR (CLEAR)
[2019-12-10 18:30] LABS: BACTERIA,URINE None Seen /HPF (None Seen); CASTS, URINE 0-2 Hyaline Casts /LPF; RBC,URINE 0-5 /HPF (0-5); SQUAMOUS EPITHELIAL CELL,UR NONE SEEN (<= Few)
[2019-12-10 19:18] VITALS: BP 136/57
== END 2019-12-10 19:18 | disposition home or self-care (01) ==
LOC: ED 17:06
DX: A08.4 Viral intestinal infection, unspecified (principal); E86.0 Dehydration; R53.1 Weakness
CPT/HCPCS: 36415; 80053; 81001; 83690; 84484; 85025; 87086; 93005; 99283; 99284; A9270; 81003

== ENCOUNTER 2020-09-07 12:27 | Outpatient (CLI) | payer MEDICARE ==
[2020-09-07 13:08] LABS: CREATININE 0.9 mg/dL (0.4-1.0)
== END 2020-09-07 12:28 | disposition home or self-care (01) ==
LOC: LAB 12:27
PROVIDERS: ATTEND Urology
DX: N28.89 Other specified disorders of kidney and ureter (principal)
CPT/HCPCS: 82565; 84520

== ENCOUNTER 2020-09-14 10:50 | Outpatient (CLI) | payer MEDICARE ==
[2020-09-14] MEDS ORDERED: IOVERSOL 320 100 ML VIAL IVP ONE ×3 (11:11→14:07)
--- NOTE | 2020-09-14 16:37 | CT Report ---
PROCEDURE: ABDOMEN W/WO INDICATIONS: RENAL PROTOCOL - RENAL MASS CONTRAST: IV CONTRAST: Optiray 320 ml: 140 PO CONTRAST: *NO PO CONTRAST TECHNIQUE: 4 phase scanning was performed. After the administration of intravenous contrast, 5 mm thick section s acquired from the diaphragm to the symphysis. 5 mm coronal and sagittal reformats were acquired. For radiation dose reduction, the following was used: automated exposure control, adjustment of mA a nd/or kV according to patient size. COMPARISON: 01/23/[address] scanning.. FINDINGS: Image quality: Excellent. Lung bases: Lung bases are clear. Heart size is normal. Liver: Normal. Other solid organs: Gallbladder has been previously resected Biliary system is non dilated. Pancre as is normal in morphology. Spleen is normal in size and enhancement. No adrenal nodules. Both kid neys demonstrate normal size and enhancement, without hydronephrosis or nephrolithiasis. A previously present anterior lower left renal cortical mass clearly visualized during renal protocol CT scanning 01/23/2019 is now absent. Postoperative distortion is noted in the immediate adjacent perirenal fat, best seen on CT series 5 image 34. The solid mass in that area is absent, no new mass has developed. No adjacent adenopathy is seen. Contrast enhanced imaging through this same area shows mild heterogen eity at the cortical margin of the lower anterior left kidney. This is an expected finding. Nodes and vessels: No retroperitoneal or mesenteric adenopathy by size criteria. Aorta and inferior vena cava are normal in size. Bowel and peritoneum: Unenhanced bowel loops are normal in caliber. No free fluid or air. Bones: No suspicious bony lesions. No vertebral body compression fractures. Miscellaneous: No ventral hernias. IMPRESSION: Apparent interval resection of a solid enhancing mass lesion involving the anterolateral cortex of the lower margin of the left kidney. No mass remains, no adjacent adenopathy is present. N o new bone or soft tissue abnormality is seen otherwise. Prior cholecystectomy. Reviewed by: Blaine Padilla MD on 09/14/2020 4:36 PM PST Approved by: Blaine Padilla MD on 09/14/2020 4:36 PM PST Station ID: [id number]
== END 2020-09-14 10:51 | disposition home or self-care (01) ==
LOC: DI 10:50
PROVIDERS: ATTEND Urology
DX: N28.89 Other specified disorders of kidney and ureter (principal)
CPT/HCPCS: 74170; Q9967

== ENCOUNTER 2021-01-26 12:52 | Outpatient (CLI) | payer MEDICARE ==
--- NOTE | 2021-01-27 11:29 | Mammography Report ---
BILATERAL DIGITAL SCREENING MAMMOGRAM 3D/2D: 01/26/2021 CLINICAL: Routine screening. Comparison is made to exams dated: 05/14/2018 mammogram, 05/01/2016 mammogram, 04/09/2015 mammogram, 03/04 mammogram, 10/14/2013 mammogram, and 03/31/2013 mammogram - [facility]. The t issue of both breasts is heterogeneously dense. This may lower the sensitivity of mammography. There is an irregular high density asymmetry in the right breast at 12 o'clock middle depth. This is more prominent. No other significant masses, calcifications, or other findings are seen in either breast. IMPRESSION: INCOMPLETE: NEEDS ADDITIONAL IMAGING EVALUATION The irregular high density asymmetry in the right breast is indeterminate. Additional views with pos sible ultrasound are recommended. This exam was interpreted at Station ID: [id number]. NOTE: For mammograms, a report in lay terms will be sent to the patient. Approximately 15% of breast malignancies will not be visualized mammographically. In the management of a palpable breast mass, a negative mammogram must not discourage biopsy of a clinically suspicious lesion. Electronically Signed By: Dasha reyez/patti:01/26/2021 18:06:11 ACR BI-RADS Category 0: Incomplete 3340F PARENCHYMAL PATTERN: (D) - The breast(s) demonstrate(s) heterogeneously dense fibroglandular [place] ragini. BI-RADS CATEGORY: (0) - 0 Mammo and [place] [id number] Immediate follow-up LATERALITY: (B)
== END 2021-01-26 12:53 | disposition home or self-care (01) ==
LOC: DI 12:52
DX: Z12.31 Encounter for screening mammogram for malignant neoplasm of breast (principal); R92.8 Other abnormal and inconclusive findings on diagnostic imaging of breast

== ENCOUNTER 2021-02-24 08:07 | Outpatient (CLI) | payer MEDICARE ==
--- NOTE | 2021-02-25 11:13 | Mammography Report ---
UNILATERAL RIGHT DIGITAL DIAGNOSTIC MAMMOGRAM 3D/2D: 02/24/2021 CLINICAL: Patient returns today to evaluate a focal asymmetry in the right breast. Comparison is made to exams dated: 01/26/2021 mammogram, 05/14/2018 mammogram, and 05/01/2016 mammogram - [facility]. The tissue of right breast is heterogeneously dense. This may lower the sensitivity of mammography. The previously seen focal asymmetry in the right breast disperses on spot compression views, most lik ema representing normal fibroglandular breast tissue. No significant masses, calcifications, or other findings are seen in the breast. IMPRESSION: INCOMPLETE: NEEDS ADDITIONAL IMAGING EVALUATION The focal asymmetry in the right breast partially disperses on compression and most likely represents normal fibroglandular breast tissue. Targeted ultrasound will be performed for confirmation immediat ema following this exam. This exam was interpreted at Station ID: [id number]. NOTE: For mammograms, a report in lay terms will be sent to the patient. Approximately 15% of breast malignancies will not be visualized mammographically. In the management of a palpable breast mass, a negative mammogram must not discourage biopsy of a clinically suspicious lesion. Electronically Signed By: Piotr south/patti:02/24/2021 09:35:13 ACR BI-RADS Category 0: Incomplete 3340F PARENCHYMAL PATTERN: (D) - The breast(s) demonstrate(s) heterogeneously dense fibroglandular ela eid. BI-RADS CATEGORY: (0) - 0 Ultrasound [id number] Immediate follow-up LATERALITY: (R)
--- NOTE | 2021-02-25 11:13 | Ultrasound Report ---
LIMITED ULTRASOUND OF RIGHT BREAST: 02/24/2021 CLINICAL: Patient returns today to evaluate a focal asymmetry in the right breast. Comparison is made to exams dated: 02/24/2021 mammogram, 01/26/2021 mammogram, 05/14/2018 mammogram, an d 05/01/2016 mammogram - [facility]. Real-time ultrasound of the right breast 11-1 o'clock region was performed. Bernabe scale images of the real-time examination were reviewed. Fibroglandular tissue but no mass is identifed in the area of the mammographic asymmetry in the right breast 12 o'clock position. IMPRESSION: NEGATIVE No sonographic abnormality is seen corresponding to the mammographic asymmetry in the right breast 12 o'clock position, which is compatible with normal fibroglandular tissue. Return to annual screening mammograms is recommended. There is no sonographic evidence of malignancy. A 1 year screening mammogram is recommended. This exam was interpreted at Station ID: [id number]. Electronically Signed By: Piotr south/patti:02/24/2021 09:36:15 Ultrasound BI-RADS: 1 Negative BI-RADS CATEGORY: (1) - 1 RECOMMENDATION: (ANNUAL) - Recommend routine annual screening mammography. [id number] 1 year screening LATERALITY: (B)
== END 2021-02-24 08:08 | disposition home or self-care (01) ==
LOC: DI 08:07
PROVIDERS: ATTEND Internal Medicine
DX: R92.8 Other abnormal and inconclusive findings on diagnostic imaging of breast (principal)

== ENCOUNTER 2021-04-09 16:17 | Emergency (ER) | payer MEDICARE ==
--- NOTE | 2021-04-09 16:36 | ED Physician Documentation ---
PD HPI URI - Stated complaint Stated Complaint: FEVER/CHILLS - Chief complaint Chief Complaint: General - History obtained from History obtained from: Patient - History of Present Illness Timing - onset: Yesterday Timing duration: Days (1-2) Timing details: Abrupt onset, Still present, Waxing and waning Associated symptoms: Fever (temp to 100.2 per sister last evening.), Chills Contributing factors: No: Sick contact, Travel, Immunocompromised, Unimmunized (Had COVID vaccines in Oct.), COPD / asthma Similar symptoms before: Has not had sx before Recently seen: Not recently seen (no recent change in medications.) Review of Systems Constitutional: reports: Fever (last evening), Myalgias Nose: denies: Rhinorrhea / runny nose, Congestion Throat: denies: Sore throat Respiratory: reports: Cough (mild) GI: denies: Vomiting, Diarrhea Skin: denies: Rash Neurologic: reports: Confused (very slightly, per her sister, with whom she lives.). denies: Focal weakness, Numbness, Near syncope, Headache PD PAST MEDICAL HISTORY - Past Medical History Cardiovascular: None Respiratory: None Neuro: Headaches Endocrine/Autoimmune: None GI: GERD COLLECTIONS SPECIALIST: None : Other HEENT: None Psych: Anxiety Musculoskeletal: None Derm: None - Past Surgical History Past Surgical History: Yes General: Cholecystectomy, Other Ortho: Other /COLLECTIONS SPECIALIST: Dilation and currettage HEENT: Tonsil/Adenoidectomy - Present Medications Home Medications: Ambulatory Orders Medication Instructions Recorded Confirmed Omeprazole [PriLOSEC] 20 mg PO DAILY 01/30/14 03/08/21 Cholecalciferol (Vitamin D3) 1,000 unit PO DAILY 01/18/16 03/08/21 [Vitamin D3] Ferrous Gluconate 324 mg PO DAILY 08/14/17 03/08/21 Gabapentin 300 mg PO BID 08/14/17 03/08/21 Calcium Carbonate [Cyeq-Kxb-149] 500 mg PO DAILY 07/21/18 03/08/21 Ondansetron Odt [Zofran] 4 mg TL Q6H PRN #10 tablet 11/27/18 03/08/21 Citalopram [CeleXA] 20 mg PO DAILY 03/09/20 03/08/21 - Allergies Allergies/Adverse Reactions: Allergies Allergy/AdvReac Type Severity Reaction Status Date / Time adhesive Allergy Unknown Unknown Verified 04/09/21 16:33 gluten Allergy Cramps Verified 04/09/21 16:33 lactose AdvReac Cramps Verified 04/09/21 16:33 - Social History Does the pt smoke?: No Smoking Status: Never smoker Does the pt drink ETOH?: No Does the pt have substance abuse?: No - Immunizations Immunizations are current?: No - POLST Patient has POLST: No POLST Status: Full Code PD ED PE NORMAL - Vitals Vital signs reviewed: Yes - General General: Alert and oriented X 3, No acute distress, Well developed/nourished - HEENT HEENT: Atraumatic, PERRL, Moist mucous membranes, Pharynx benign - Neck Neck: Supple, no meningeal sign, No adenopathy - Cardiac Cardiac: RRR, No murmur - Respiratory Respiratory: Clear bilaterally - Abdomen Abdomen: Soft, Non tender, Non distended - Back Back: No CVA TTP - Derm Derm: Normal color, Warm and dry - Extremities Extremities: Normal ROM s pain, No edema, No calf tenderness / cord - Neuro Neuro: Alert and oriented X 3, No motor deficit, No sensory deficit, Normal speech Results - Vitals Vitals: Vital Signs - 24 hr 04/09/21 04/09/21 04/09/21 16:26 17:00 18:00 Temperature 36.9 C Heart Rate 88 106 H 97 Respiratory 18 17 23 Rate Blood Pressure 152/79 H 159/57 H 144/59 H O2 Saturation 97 96 95 04/09/21 04/09/21 19:00 20:10 Temperature Heart Rate 96 87 Respiratory 16 18 Rate Blood Pressure 125/90 H 154/84 H O2 Saturation 95 97 Oxygen O2 Source [With Activity] Room air O2 Source Room air - Labs Labs: Laboratory Tests 04/09/21 04/09/21 04/09/21 16:48 16:48 16:48 WBC 6.9 RBC 4.22 Hgb 11.9 L Hct 36.9 L MCV 87.4 MCH 28.2 MCHC 32.2 RDW 16.0 H Plt Count 184 MPV 9.5 Neut # (Auto) 6.1 Lymph # (Auto) 0.4 L [place] # (Auto) 0.3 Eos # (Auto) 0.0 Baso # (Auto) 0.0 Absolute Nucleated RBC 0.00 Nucleated RBC % 0.0 Sodium 140 Potassium 3.8 Chloride 105 Carbon Dioxide 25 Anion Gap 10.0 BUN 19 Creatinine 1.0 Estimated GFR (MDRD) 54 L Glucose 118 H Lactic Acid 1.5 Calcium 9.2 Total Bilirubin 0.7 AST 47 H ALT 36 Alkaline Phosphatase 77 Total Protein 7.7 Albumin 4.5 Globulin 3.2 Albumin/Globulin Ratio 1.4 Lipase 20 L Urine Color Urine Clarity Urine pH Ur Specific [place] Urine Protein Urine Glucose (UA) Urine Ketones Urine Occult Blood Urine Nitrite Urine Bilirubin Urine Urobilinogen Ur Leukocyte Esterase Ur Microscopic Review Urine Culture Comments Urine Opiates Screen Ur Oxycodone Screen Urine Methadone Screen Ur Propoxyphene Screen Ur Barbiturates Screen Ur Tricyclics Screen Ur Phencyclidine Scrn Ur Amphetamine Screen U Methamphetamines Scrn U Benzodiazepines Scrn Urine Cocaine Screen U Cannabinoids Screen Ethyl Alcohol 04/09/21 04/09/21 04/09/21 16:48 18:20 18:20 WBC RBC Hgb Hct MCV MCH MCHC RDW Plt Count MPV Neut # (Auto) Lymph # (Auto) [place] # (Auto) Eos # (Auto) Baso # (Auto) Absolute Nucleated RBC Nucleated RBC % Sodium Potassium Chloride Carbon Dioxide Anion Gap BUN Creatinine Estimated GFR (MDRD) Glucose Lactic Acid Calcium Total Bilirubin AST ALT Alkaline Phosphatase Total Protein Albumin Globulin Albumin/Globulin Ratio Lipase Urine Color LIGHT YELLOW Urine Clarity CLEAR Urine pH 8.0 H Ur Specific [place] 1.020 Urine Protein NEGATIVE Urine Glucose (UA) NEGATIVE Urine Ketones NEGATIVE Urine Occult Blood TRACE-INTA Urine Nitrite NEGATIVE Urine Bilirubin NEGATIVE Urine Urobilinogen 0.2 (NORMAL) Ur Leukocyte Esterase NEGATIVE Ur Microscopic Review NOT INDICATED Urine Culture Comments NOT INDICATED Urine Opiates Screen NEGATIVE Ur Oxycodone Screen NEGATIVE Urine Methadone Screen NEGATIVE Ur Propoxyphene Screen NEGATIVE Ur Barbiturates Screen NEGATIVE Ur Tricyclics Screen NEGATIVE Ur Phencyclidine Scrn NEGATIVE Ur Amphetamine Screen NEGATIVE U Methamphetamines Scrn NEGATIVE U Benzodiazepines Scrn NEGATIVE Urine Cocaine Screen NEGATIVE U Cannabinoids Screen NEGATIVE Ethyl Alcohol < 5.0 - Rads (name of study) chest xray Radiology: Prelim report reviewed (no acute process), See rad report head CT Radiology: Prelim report reviewed (no ICH nor focal process), See rad report PD MEDICAL DECISION MAKING - ED course Complexity details: reviewed results (UA, chest xray and head CT are good. Labs with normal WBC and lactic acid. Not suggestive of focal/serious infection at this time. Abd not tender. No skin rash. ), re-evaluated patient (sister still feels the patient is a little off on thought processing and demeanor. She is conversant and interacting well with staff. Sats and vitals are good. I do not see reason for admission. No headache/vomiting/stiffness, so do not see indications for LP at this time.), considered differential (sister says slightly confused and has had fever and some cough. Prior COVID vaccine back in Oct. No recent med changes. Presume infectious and will eval for bacterial process/ensure not sepsis. ), d/w patient, d/w family (sister) Departure - Departure Disposition: 01 Home, Self Care Clinical Impression: General weakness, Viral illness, Confusion Condition: Stable Record reviewed to determine appropriate education?: Yes Instructions: ED Viral Syndrome Follow-Up: Mary Valenzuela MD [Primary Care Provider] - Comments: Basic testing here is normal without any signs of sepsis, pneumonia, urinary infection. Your Covid test will result likely tomorrow. It is less likely that you have this given your prior immunization and not being around ill folk. It is possible to be some other viral type illness. At this point I would suggest staying well-hydrated. Continue usual medications. Use Tylenol every 4-6 hours if needed for fevers or aches. See how you do into tomorrow and the next day. Return if increased general symptoms, trouble breathing, or level of confusion or weakness. Discharge Date/Time: 04/09/21 20:10
[2021-04-09] MEDS ORDERED: ACETAMINOPHEN 325 MG TABLET PO STA (16:46)
[2021-04-09 16:52] LABS: BASOPHILS % (AUTO) 0.1 %; EOSINOPHILS % (AUTO) 0.4 %; HCT - HEMATOCRIT 36.9 % (37.0-47.0); HGB - HEMOGLOBIN 11.9 g/dL (12.0-16.0); LYMPHOCYTES # (AUTO) 0.4 10^3/uL (1.5-3.5); LYMPHOCYTES % (AUTO) 5.5 %; MEAN CORPUSCULAR HEMOGLOBIN 28.2 pg (27.0-31.0); MEAN CORPUSCULAR HGB CONC 32.2 g/dL (32.0-36.0); MEAN CORPUSCULAR VOLUME 87.4 fL (81.0-99.0); MEAN PLATELET VOLUME 9.5 fL (7.9-10.8); MONOCYTES # (AUTO) 0.3 10^3/uL (0.0-1.0); MONOCYTES % (AUTO) 3.9 %; NEUTROPHILS # (AUTO) 6.1 10^3/uL (1.5-6.6); NEUTROPHILS % (AUTO) 89.8 %; PLT - PLATELET COUNT 184 10^3/uL (130-450); RED BLOOD COUNT 4.22 10^6/uL (4.20-5.40); WHITE BLOOD COUNT 6.9 x10^3/uL (4.8-10.8)
--- NOTE | 2021-04-09 17:03 | XRAY Report ---
PROCEDURE: Chest 1 View X-Ray INDICATIONS: chest pain TECHNIQUE: One view of the chest was acquired. COMPARISON: 07/21/2019, 03/22/2016 FINDINGS: Surgical changes and devices: None. Lungs and pleura: No pleural effusions or pneumothorax. Lungs are clear. Mediastinum: Mediastinal contours appear normal. Heart size is normal. Bones and chest wall: No suspicious bony lesions. Age-appropriate degenerative changes are seen. Overlying soft tissues appear unremarkable. IMPRESSION: No acute cardiopulmonary process is seen. Reviewed by: Arnoldo Eric MD on 04/09/2021 4:02 PM [facility] Approved by: Arnoldo Eric MD on 04/09/2021 4:02 PM [facility] Station ID: [id number]
[2021-04-09 17:06] LABS: ALBUMIN 4.5 g/dL (3.2-5.5); ALBUMIN/GLOBULIN RATIO 1.4 (1.0-2.2); BILIRUBIN,TOTAL 0.7 mg/dL (0.2-1.0); CALCIUM 9.2 mg/dL (8.5-10.3); POTASSIUM 3.8 mmol/L (3.5-5.0); TOTAL PROTEIN 7.7 g/dL (6.7-8.2)
[2021-04-09 18:26] LABS: MUDS CUTOFF CONCENTRATIONS CUTOFF CONC BELOW:
[2021-04-09 18:30] LABS: BILIRUBIN,URINE NEGATIVE (NEGATIVE); CLARITY,URINE CLEAR (CLEAR); GLUCOSE, URINE (UA) NEGATIVE (NEGATIVE); KETONES,URINE (UA) NEGATIVE (NEGATIVE); LEUKOCYTE ESTERASE, URINE NEGATIVE (NEGATIVE); NITRITE,URINE NEGATIVE (NEGATIVE); OCCULT BLOOD,URINE TRACE-INTA (NEGATIVE); PROTEIN,URINE NEGATIVE (NEGATIVE); UROBILINOGEN,URINE 0.2 (NORMAL) E.U./dL (NORMAL)
[2021-04-09 18:39] LABS: AMPHETAMINE SCREEN,URINE NEGATIVE (NEGATIVE); BARBITURATE SCREEN,UR NEGATIVE (NEGATIVE); BENZODIAZEPINES SCREEN, URINE NEGATIVE (NEGATIVE); COCAINE SCREEN URINE NEGATIVE (NEGATIVE); METHADONE SCREEN, URINE NEGATIVE (NEGATIVE); METHAMPHETAMINES SCREEN, URINE NEGATIVE (NEGATIVE); OPIATE SCREEN, URINE NEGATIVE (NEGATIVE); OXYCODONE SCREEN, URINE NEGATIVE (NEGATIVE); PROPOXYPHENE SCREEN, URINE NEGATIVE (NEGATIVE); THC CANNABINOID SCREEN, URINE NEGATIVE (NEGATIVE); TRICYCLIC ANTIDEPRESSANT,URINE NEGATIVE (NEGATIVE)
--- NOTE | 2021-04-09 18:59 | CT Report ---
PROCEDURE: HEAD WO INDICATIONS: confused TECHNIQUE: Noncontrast 4.5 mm thick angled axial sections acquired from the foramen magnum to the vertex. For r adiation dose reduction, the following was used: automated exposure control, adjustment of mA and/or kV according to patient size. COMPARISON: 07/21/2018 and 12/22/2016.. FINDINGS: Image quality: Excellent. CSF spaces: Basal cisterns are patent. No extra-axial fluid collections. The ventricles are symmet steph in size and shape. Brain: No intracranial bleeds. 9 mm calcified right frontal-temporal extra-axial mass is stable comp ared to prior exams may represent a meningioma. There is cerebral volume loss for age, with resultant ventricular and sulcal prominence. There are periventricular and deep white matter chronic small ve ssel ischemic changes. There is intracranial internal carotid artery atherosclerosis. Skull and face: Calvarium and visualized facial bones appear intact, without suspicious lesions. Sinuses: Visualized sinuses and mastoids are clear. IMPRESSION: No acute intracranial disease process. Reviewed by: Mayra Hernandez MD, PhD on 04/09/2021 6:57 PM PDT Approved by: Mayra Hernandez MD, PhD on 04/09/2021 6:57 PM PDT Station ID: [id number]
[2021-04-09 20:12] VITALS: BP 154/84
== END 2021-04-09 20:10 | disposition home or self-care (01) ==
LOC: ED 16:17
DX: B34.9 Viral infection, unspecified (principal); R41.0 Disorientation, unspecified; R53.1 Weakness; F41.9 Anxiety disorder, unspecified; K21.9 Gastro-esophageal reflux disease without esophagitis; Z79.899 Other long term (current) drug therapy; Z20.822 Contact with and (suspected) exposure to COVID-19
CPT/HCPCS: 36415; 70450; 71045; 80053; 80306; 81003; 83605; 83690; 85025; 99282; 99284; A9270; G0480; U0004; 80320; 81001; 87086

== ENCOUNTER 2021-06-24 08:00 | Outpatient (CLI) | payer MEDICARE | END 2021-06-24 23:59 | LOC: LAB.N 08:00 | PROVIDERS: ATTEND Family Medicine | DX: R19.7 Diarrhea, unspecified (principal); Z20.822 Contact with and (suspected) exposure to COVID-19 ==

== ENCOUNTER 2021-07-22 11:59 | Outpatient (CLI) | payer MEDICARE ==
--- NOTE | 2021-07-23 11:19 | Ultrasound Report ---
PROCEDURE: Retroperitoneal INDICATIONS: LT RENAL MASS TECHNIQUE: Real-time scanning was performed of the kidneys and bladder, with image documentation. COMPARISON: 07/21/2018. Correlation is made with CT examinations, 09/14/2020 and 01/23/2019 FINDINGS: Scarring change can be seen at the inferior pole of the left kidney, without a residual/recurrent mas s seen. Kidneys are normal in size. Right kidney measures 10.5 cm long; left kidney measures 9.3 cm long. R ight renal cortical thickness is 1.2 cm; left renal cortical thickness is 1.6 cm. No solid masses, h ydronephrosis, or nephrolithiasis. On the right, there is a 1 cm simple appearing cyst superiorly. The prevoid bladder volume is 343 cc. The post void bladder volume is 33 cc. Both ureteral jets can be seen. Miscellaneous: No free abdominal fluid. IMPRESSION: There is an area of scarring seen at the inferior pole the left kidney, without a recurrent or residu al mass seen. Mild postvoid residual, 33 cc. Reviewed by: Arnoldo Eric MD on 07/23/2021 10:18 AM [facility] Approved by: Arnoldo Eric MD on 07/23/2021 10:18 AM [facility] Station ID: [id number]
== END 2021-07-22 12:00 | disposition home or self-care (01) ==
LOC: DI 11:59
PROVIDERS: ATTEND Urology
DX: N28.89 Other specified disorders of kidney and ureter (principal)

== ENCOUNTER 2021-11-03 08:00 | Outpatient (CLI) | payer MEDICARE ==
[2021-11-03 15:59] LABS: BASOPHILS % (AUTO) 0.5 %; EOSINOPHILS % (AUTO) 0.7 %; HCT - HEMATOCRIT 37.1 % (37.0-47.0); HGB - HEMOGLOBIN 12.1 g/dL (12.0-16.0); LYMPHOCYTES # (AUTO) 1.6 10^3/uL (1.5-3.5); MEAN CORPUSCULAR HEMOGLOBIN 28.3 pg (27.0-31.0); MEAN CORPUSCULAR HGB CONC 32.6 g/dL (32.0-36.0); MEAN CORPUSCULAR VOLUME 86.7 fL (81.0-99.0); MEAN PLATELET VOLUME 10.9 fL (7.9-10.8); MONOCYTES # (AUTO) 0.5 10^3/uL (0.0-1.0); MONOCYTES % (AUTO) 8.2 %; NEUTROPHILS # (AUTO) 3.6 10^3/uL (1.5-6.6); NEUTROPHILS % (AUTO) 62.4 %; PLT - PLATELET COUNT 191 10^3/uL (130-450); RED BLOOD COUNT 4.28 10^6/uL (4.20-5.40); WHITE BLOOD COUNT 5.7 x10^3/uL (4.8-10.8)
[2021-11-03 16:13] LABS: ALBUMIN 4.5 g/dL (3.2-5.5); ALBUMIN/GLOBULIN RATIO 1.5 (1.0-2.2); ALKALINE PHOSPHATASE 57 IU/L (42-121); ALT ALANINE AMINOTRANSFERASE 17 IU/L (10-60); AST ASPARTATE AMINOTRANSFERASE 22 IU/L (10-42); BUN - BLOOD UREA NITROGEN 14 mg/dL (6-20); CALCIUM 9.2 mg/dL (8.5-10.3); CARBON DIOXIDE - CO2 23 mmol/L (21-32); CHLORIDE 101 mmol/L (101-111); CHOL/HDL RATIO 4.9 (<4.4); CHOLESTEROL 166 mg/dL; CREATININE 0.9 mg/dL (0.4-1.0); GFR - MDRD 61 (>89); GLUCOSE 87 mg/dL (70-100); HDL CHOLESTEROL 34 mg/dL; LDL CHOLESTEROL,CALCULATED 99 mg/dL; LDL/HDL RATIO 2.9 (<4.4); POTASSIUM 3.3 mmol/L (3.5-5.0); SODIUM 136 mmol/L (135-145); TOTAL PROTEIN 7.6 g/dL (6.7-8.2); TRIGLYCERIDES 164 mg/dL; VLDL CHOLESTEROL 33 mg/dL
[2021-11-03 16:25] LABS: THYROID STIMULATING HORMONE 0.27 uIU/mL (0.34-5.60)
== END 2021-11-03 23:59 | disposition home or self-care (01) ==
LOC: LAB.R 08:00
PROVIDERS: ATTEND Internal Medicine
DX: Z00.00 Encounter for general adult medical examination without abnormal findings (principal); F41.9 Anxiety disorder, unspecified; R26.81 Unsteadiness on feet; K22.70 Barrett's esophagus without dysplasia; H81.10 Benign paroxysmal vertigo, unspecified ear; R53.83 Other fatigue; M79.7 Fibromyalgia; C43.9 Malignant melanoma of skin, unspecified; D47.2 Monoclonal gammopathy; Z13.6 Encounter for screening for cardiovascular disorders; Z79.899 Other long term (current) drug therapy
CPT/HCPCS: 80053; 80061; 82306; 82607; 83721; 84439; 84443; 85025

== ENCOUNTER 2021-11-15 10:39 | Outpatient (CLI) | payer MEDICARE ==
--- NOTE | 2021-11-15 14:13 | MRI Report ---
PROCEDURE: Lumbar Spine W/O INDICATIONS: L LEG WEAKNESS, LOW BACK PAIN TECHNIQUE: Noncontrast sagittal T1 spin echo and T2 fast echo, sagittal STIR, axial T1 and T2 fast spin echo thr ough the lumbar spine. In cases with scoliosis, additional coronal T2 fast spin echo may be performe d. COMPARISON: Correlation is made with the prior retroperitoneal ultrasound 07/22/2021 and prior abdom en CT 09/14/2020.. FINDINGS: Image quality: Excellent. Alignment and Curvature: There is mild to moderate levoconvex lumbar scoliosis. Minimal anterolisthe sis is seen at L3-L4. Minimal retrolisthesis is seen at L5-S1. Bone Marrow: Marrow is of normal overall signal. No acute vertebral body compression fractures. Spinal Cord: Conus medullaris terminates at the L1 level. Visualized cord demonstrates normal signa l and size. Paraspinous Soft Tissues: At the inferior pole of the left kidney, there is an exophytic 1.6 cm nodul e seen, as on series 801 image 9. On the prior CT, this has the appearance of a nodule. T12-L1: Normal in appearance. L1-L2: The disc height is well-preserved. There is loss of disc signal seen. Mild disc bulge is seen, which is eccentric to the right. There is a mild central disc protrusion. Mild to moderate face t hypertrophy is seen. No significant neuroforaminal narrowing is seen. Minimal central canal narrowi ng is seen. L2-L3: Moderate loss of disc height and disc signal can be seen. No significant disc bulge is seen . No significant neural foraminal or central canal narrowing can be seen. On the prior CT examinati on, partial bony fusion can be seen at this level. L3-L4: Mild loss of disc height and disc signal are seen. Moderate disc bulge is seen, with a centr al disc protrusion. Moderate facet hypertrophy is seen. Associated hypertrophy of the ligamentum fl avum can be seen. There is moderate bilateral neuroforaminal narrowing seen, right worse than left. Moderate central canal narrowing is seen. L4-L5: At least moderate loss of disc height and disc signal can be seen. Moderate disc bulge is s een at this level. Mild facet hypertrophy is seen. There is moderate right-sided and mild to moder ate left-sided neuroforaminal narrowing. Mild to moderate central canal narrowing is seen. L5-S1: Mild loss of disc height and disc signal are seen. Mild to moderate disc bulge is seen, whic h is eccentric to the left. A superimposed central disc protrusion is seen. Mild facet hypertrophy i s seen. There is at least moderate bilateral neuroforaminal narrowing seen, with a mild degree of co mpression upon the exiting L5 nerve roots. Minimal central canal narrowing is seen. IMPRESSION: Multiple levels of relatively prominent lumbar spine degenerative change can be seen. Reviewed by: Arnoldo Eric MD on 11/15/2021 1:12 PM [facility] Approved by: Arnoldo Eric MD on 11/15/2021 1:12 PM [facility] Station ID: [id number]
== END 2021-11-15 10:40 | disposition home or self-care (01) ==
LOC: DI 10:39
PROVIDERS: ATTEND Internal Medicine
DX: M51.26 Other intervertebral disc displacement, lumbar region (principal); M47.816 Spondylosis without myelopathy or radiculopathy, lumbar region; M51.36 Other intervertebral disc degeneration, lumbar region; M48.061 Spinal stenosis, lumbar region without neurogenic claudication; M51.17 Intervertebral disc disorders with radiculopathy, lumbosacral region; M48.07 Spinal stenosis, lumbosacral region; M47.817 Spondylosis without myelopathy or radiculopathy, lumbosacral region

== ENCOUNTER 2022-03-21 12:25 | Outpatient (CLI) | payer MEDICARE ==
--- NOTE | 2022-03-22 16:18 | Mammography Report ---
BILATERAL DIGITAL SCREENING MAMMOGRAM 3D/2D: 03/21/2022 CLINICAL: Family history of breast cancer. Routine screening. Comparison is made to exams dated: 02/24/2021 ultrasound, 02/24/2021 mammogram, 01/26/2021 mammogram, mammogram, 05/01/2016 mammogram, and 04/09/2015 mammogram - [facility]. The tissue of both breasts is heterogeneously dense. This may lower the sensitivity of mammography. No significant masses, calcifications, or other findings are seen in either breast. There has been no significant interval change. IMPRESSION: NEGATIVE There is no mammographic evidence of malignancy. A 1 year screening mammogram is recommended. Based on the Tyrer Cuzick model (a risk assessment model) the patients lifetime risk is 13.8% and he r 10 year risk is 0.0%. According to the ACR, ACS, and NCCN guidelines, an annual breast MRI exam migdalia ng with mammogram is recommended if the patients lifetime risk is 20% or greater. This exam was interpreted at Station ID: [id number]. NOTE: For mammograms, a report in lay terms will be sent to the patient. Approximately 15% of breast malignancies will not be visualized mammographically. In the management of a palpable breast mass, a negative mammogram must not discourage biopsy of a clinically suspicious lesion. Electronically Signed By: Dasha reyez/patti:03/21/2022 16:59:28 ACR BI-RADS Category 1: Negative 3341F PARENCHYMAL PATTERN: (D) - The breast(s) demonstrate(s) heterogeneously dense fibroglandular ela eid. BI-RADS CATEGORY: (1) - 1 RECOMMENDATION: (ANNUAL) - Recommend routine annual screening mammography. [id number] 1 year screening LATERALITY: (B)
== END 2022-03-21 12:26 | disposition home or self-care (01) ==
LOC: DI.N 12:25
PROVIDERS: ATTEND Internal Medicine
DX: Z12.31 Encounter for screening mammogram for malignant neoplasm of breast (principal); Z80.3 Family history of malignant neoplasm of breast

== ENCOUNTER 2022-07-10 15:58 | Outpatient (CLI) | payer MEDICARE ==
--- NOTE | 2022-07-11 12:05 | XRAY Report ---
PROCEDURE: Chest 2 View X-Ray INDICATIONS: COUGH TECHNIQUE: 2 views of the chest were obtained. COMPARISON: Chest x-ray 04/09/2021 FINDINGS: Cardiac mediastinal silhouette is normal in size and contour. No effusions, consolidations or pneumot horax. Osseous and soft tissue structures are unremarkable. IMPRESSION: No acute pulmonary process. Reviewed by: Rachel Wilkins MD on 07/11/2022 12:04 PM PST Approved by: Rachel Wilkins MD on 07/11/2022 12:04 PM [facility] Station ID: [id number]
== END 2022-07-10 15:59 | disposition home or self-care (01) ==
LOC: DI.N 15:58
PROVIDERS: ATTEND Internal Medicine
DX: R05.1 Acute cough (principal)

== ENCOUNTER 2022-12-28 10:37 | Outpatient (CLI) | payer MEDICARE ==
--- NOTE | 2022-12-29 11:16 | Mammography Report ---
UNILATERAL RIGHT DIGITAL DIAGNOSTIC MAMMOGRAM 3D/2D: 12/28/2022 CLINICAL: Focal right breast pain. Comparison is made to exams dated: 03/21/2022 mammogram, 02/24/2021 mammogram, 01/26/2021 mammogram, an d 05/14/2018 mammogram - [facility]. The right breast is heterogeneously dense, which may obscure small masses (category c / 51-75% glandu lar tissue). No significant masses, calcifications, or other findings are seen in the breast. IMPRESSION: INCOMPLETE: NEEDS ADDITIONAL IMAGING EVALUATION No mammographic evidence of malignancy. A targeted ultrasound is recommended and will immediately follow. Based on the Tyrer Cuzick model (a risk assessment model) the patients lifetime risk is 12.4% and he r 10 year risk is 0.0%. According to the ACR, ACS, and NCCN guidelines, an annual breast MRI exam migdalia ng with mammogram is recommended if the patients lifetime risk is 20% or greater. This exam was interpreted at Station ID: [id number]. NOTE: For mammograms, a report in lay terms will be sent to the patient. Approximately 15% of breast malignancies will not be visualized mammographically. In the management of a palpable breast mass, a negative mammogram must not discourage biopsy of a clinically suspicious lesion. Electronically Signed By: Jon Jarvis M.D. slc/:12/28/2022 11:07:56 ACR BI-RADS Category 0: Incomplete 3340F PARENCHYMAL PATTERN: (D) - The breast(s) demonstrate(s) heterogeneously dense fibroglandular ela eid. BI-RADS CATEGORY: (0) - 0 Ultrasound [id number] Immediate follow-up LATERALITY: (B)
--- NOTE | 2022-12-29 11:16 | Ultrasound Report ---
LIMITED ULTRASOUND OF RIGHT BREAST: 12/28/2022 CLINICAL: Occasional right breast pain. Comparison is made to exams dated: 12/28/2022 mammogram, 03/21/2022 mammogram, 02/24/2021 ultrasound, mammogram, 01/26/2021 mammogram, and 05/14/2018 mammogram - [facility]. Color flow and real-time ultrasound of the right breast 9-10 o'clock region were performed. Bernabe sca le images of the real-time examination were reviewed. There is a benign normal lymph node in the right breast at 9 o'clock posterior depth. This correlate s as an incidental finding. No mass in the region of pain. IMPRESSION: BENIGN There is no sonographic evidence of malignancy. No mass in the region of pain. The normal lymph node in the right breast is benign. A 1 year screening mammogram is recommended. Exam findings were conveyed to the patient. Patient is advised to monitor for significant change. Cli nical follow-up as needed. This exam was interpreted at Station ID: [id number]. Electronically Signed By: Jon Jarvis M.D. slc/:12/28/2022 11:37:35 Ultrasound BI-RADS: 2 Benign BI-RADS CATEGORY: (2) - 2 Mammogram [id number] 1 year screening LATERALITY: (B)
== END 2022-12-28 10:38 | disposition home or self-care (01) ==
LOC: DI 10:37
PROVIDERS: ATTEND Internal Medicine
DX: N64.4 Mastodynia (principal)

== ENCOUNTER 2023-12-19 10:40 | Outpatient (CLI) | payer MEDICARE ==
--- NOTE | 2023-12-20 09:30 | Ultrasound Report ---
LIMITED ULTRASOUND OF RIGHT BREAST: 12/19/2023 CLINICAL: Focal right breast pain. Comparison is made to exams dated: 12/19/2023 mammogram, 12/28/2022 mammogram, 03/21/2022 mammogram, an d 02/24/2021 mammogram - [facility]. Color flow and real-time ultrasound of the right breast 9 o'clock region were performed. Bernabe scale images of the real-time examination were reviewed. No significant abnormalities were seen sonographically in the right breast in the region of pain. IMPRESSION: NEGATIVE There is no sonographic evidence of malignancy. No mass or cyst in the region of pain. Exam findings were conveyed to the patient. Patient is advised to monitor for significant change. Cli nical follow-up as needed. A 1 year screening mammogram is recommended. This exam was interpreted at Station ID: [id number]. Electronically Signed By: Jon Jarvis M.D. slc/:12/19/2023 11:35:49 Ultrasound BI-RADS: 1 Negative BI-RADS CATEGORY: (1) - 1 RECOMMENDATION: (ANNUAL) - Recommend routine annual screening mammography. [id number] 1 year screening LATERALITY: (B)
--- NOTE | 2023-12-20 09:30 | Mammography Report ---
BILATERAL DIGITAL DIAGNOSTIC MAMMOGRAM 3D/2D: 12/19/2023 CLINICAL: Focal right breast pain. Due for bilateral exam. Comparison is made to exams dated: 12/28/2022 mammogram, 03/21/2022 mammogram, 02/24/2021 mammogram, mammogram, 05/14/2018 mammogram, and 05/01/2016 mammogram - [facility]. Both breasts are heterogeneously dense, which may obscure small masses (category c / 51-75% glandular tissue). No significant masses, calcifications, or other findings are seen in either breast. IMPRESSION: INCOMPLETE: NEEDS ADDITIONAL IMAGING EVALUATION No mammographic evidence of malignancy. A targeted ultrasound is recommended and will immediately follow. Based on the Tyrer Cuzick model (a risk assessment model) the patient's lifetime risk is 10.8% and he r 10 year risk is 0.0%. According to the ACR, ACS, and NCCN guidelines, an annual breast MRI exam migdalia ng with mammogram is recommended if the patient's lifetime risk is 20% or greater. This exam was interpreted at Station ID: [id number]. NOTE: For mammograms, a report in lay terms will be sent to the patient. Approximately 15% of breast malignancies will not be visualized mammographically. In the management of a palpable breast mass, a negative mammogram must not discourage biopsy of a clinically suspicious lesion. Electronically Signed By: Jon Jarvis M.D. slc/:12/19/2023 11:17:38 ACR BI-RADS Category 0: Incomplete 3340F PARENCHYMAL PATTERN: (D) - The breast(s) demonstrate(s) heterogeneously dense fibroglandular [place]. BI-RADS CATEGORY: (0) - 0 Ultrasound [id number] Immediate follow-up LATERALITY: (B)
== END 2023-12-19 10:41 | disposition home or self-care (01) ==
LOC: DI 10:40
PROVIDERS: ATTEND Internal Medicine
DX: N64.4 Mastodynia (principal); R92.333 Mammographic heterogeneous density, bilateral breasts

== ENCOUNTER 2024-01-03 07:05 | Day surgery (SDC) | payer MEDICARE ==
[2024-01-03] MEDS: LACTATED RINGERS 1,000 ML IV ONE (07:25)
--- NOTE | 2024-01-03 07:55 | ANESTHESIA ---
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, & Labs - Diagnosis Cintron's - Procedure EGD Vital Signs: Temp Pulse Resp BP Pulse Ox O2 Flow Rate 36 C L 62 16 123/71 100 01/03/24 07:27 01/03/24 07:27 01/03/24 07:27 01/03/24 07:27 01/03/24 07:27 Height: 5 ft 8 in Weight (kg): 61.1 kg Body Mass Index: 20.5 BMI Classification: Normal - NPO >8 hours - Is Patient ?: No Home Medications and Allergies Omeprazole [PriLOSEC] 20 mg PO DAILY 01/30/14 Cholecalciferol (Vitamin D3) [Vitamin D3] 1,000 unit PO DAILY 01/18/16 Ferrous Gluconate 324 mg PO DAILY 08/14/17 Gabapentin 300 mg PO TID 08/14/17 Calcium Carbonate [Jdzj-Bgj-204] 500 mg PO DAILY 07/21/18 Citalopram [CeleXA] 20 mg PO DAILY 03/09/20 Cyanocobalamin (Vitamin B-12) [Vitamin B-12] 1,000 mcg PO DAILY 04/04/22 Allergies/Adverse Reactions: Allergies Allergy/AdvReac Type Severity Reaction Status Date / Time adhesive Allergy Unknown Unknown Verified 01/03/24 07:44 gluten Allergy Cramps Verified 01/03/24 07:44 lactose AdvReac Cramps Verified 01/03/24 07:44 Anes History & Medical History - Anesthetic History Anesthesia Complications: reports: No previous complications - Medical History Cardiovascular: reports: None Pulmonary: reports: None Gastrointestinal: reports: GERD Urinary: reports: Other Neuro: reports: Headaches Musculoskeletal: reports: None, Fibromyalgia Endocrine/Autoimmune: reports: Other Blood Disorders: reports: Anemia Skin: reports: None Smoking Status: Never smoker - Surgical History General: reports: Cholecystectomy, Other Eyes Ears Nose Throat (EENT): reports: Tonsil/Adenoidectomy Gynecologic: reports: Dilation and currettage Orthopedic: reports: Other Exam General: Alert, Oriented x3 Dental: WNL Mouth Opening: Greater than 4 Fingerbreadths Neck Mobility: Normal Mallampati classification: III Thyromental Distance: greater than 6 cm Respiratory: Lungs clear Cardiovascular: Regular rate Plan Anesthesia Type: Total IV Consent for Procedure(s) Verified and Reviewed: Yes Code Status: Attempt Resuscitation ASA classification: 2-Mild systemic disease Is this case an emergency?: No
[2024-01-03] MEDS ORDERED: LIDOCAINE-MPF 2% 5 ML VIAL ONE (08:38)
[2024-01-03] MEDS ORDERED: PROPOFOL 200 MG/20 ML VIAL IVP ONE (08:38)
[2024-01-03] MEDS: LACTATED RINGERS 800 ML IV ONE ×2 (09:14→09:42)
[2024-01-03 09:29] VITALS: BP 127/56; O2SAT 96
--- NOTE | 2024-01-03 10:25 | ANESTHESIA POST OP EVALUATION ---
Anesthesia Post Eval - Post Anesthesia Eval Vitals: Last Vital Signs Temp 36.0 C L 01/03/24 09:27 Pulse 72 01/03/24 09:27 Resp 18 01/03/24 09:27 BP 127/56 L 01/03/24 09:27 Pulse Ox 96 01/03/24 09:27 O2 Flow Rate CV Function Including HR & BP: Stable Pain Control: Satisfactory Nausea & Vomiting: Negative Mental Status: Baseline Respiratory Status: Airway Patent Hydration Status: Satisfactory Anesthesia Complications: None
== END 2024-01-03 07:06 | disposition home or self-care (01) ==
LOC: SDS 07:05
PROVIDERS: ATTEND Surgery
PROC: 0DB68ZX Excision of Stomach, Via Natural or Artificial Opening Endoscopic, Diagnostic (ICD-10-PCS; 2024-01-03)
PROC: 0DB28ZX Excision of Middle Esophagus, Via Natural or Artificial Opening Endoscopic, Diagnostic (ICD-10-PCS; 2024-01-03)
PROC: 0DB38ZX Excision of Lower Esophagus, Via Natural or Artificial Opening Endoscopic, Diagnostic (ICD-10-PCS; principal; 2024-01-03 08:45)
DX: R13.10 Dysphagia, unspecified (principal); K21.9 Gastro-esophageal reflux disease without esophagitis; Z87.19 Personal history of other diseases of the digestive system; K44.9 Diaphragmatic hernia without obstruction or gangrene; K31.7 Polyp of stomach and duodenum; K22.89 Other specified disease of esophagus
CPT/HCPCS: 43239; J7120

== ENCOUNTER 2024-03-11 12:36 | Outpatient (CLI) | payer MEDICARE | END 2024-03-11 12:37 | disposition home or self-care (01) | LOC: DI 12:36 | PROVIDERS: ATTEND Internal Medicine | DX: I08.0 Rheumatic disorders of both mitral and aortic valves (principal); G45.9 Transient cerebral ischemic attack, unspecified; R47.01 Aphasia; R41.3 Other amnesia | CPT/HCPCS: 93307 ==